=== PATIENT | female | born 1945 | race Caucasian/White ===

== ENCOUNTER 2024-09-24 15:20 | Emergency (ER) | payer MEDICARE, OTHER, SELFPAY ==
[2024-09-24 15:42] VITALS: BP 122/60; PULSE 84; RESP 17; TEMP 36.8; O2SAT 97; BMI 31.3
--- NOTE | 2024-09-24 17:19 | XRR_ITS ---
PROCEDURE INFORMATION: Exam: XR Chest Exam date and time: 09/24/2024 5:41 PM Age: 79 years old Clinical indication: Cough and dyspnea; Additional info: Dyspnea/cough TECHNIQUE: Imaging protocol: Radiologic exam of the chest. Views: 1 view. COMPARISON: No relevant prior studies available. FINDINGS: Lungs: There is an opacity in the left lung base medially in the retrocardiac station which is incompletely visualized and assessed on this examination. A lateral view may help to further visualize this finding. Pleural spaces: Unremarkable. No pleural effusion. No pneumothorax. Heart/Mediastinum: Unremarkable. No cardiomegaly. Bones/joints: Unremarkable. XR/XR chest 1V portable [id number] IMPRESSION: There is an opacity in the left lung base medially in the retrocardiac station which is incompletely visualized and assessed on this examination. A lateral view may help to further visualize this finding.
--- NOTE | 2024-09-24 17:19 | CTR_ITS ---
PROCEDURE INFORMATION: Exam: CT Head Without Contrast Exam date and time: 09/24/2024 5:48 PM Age: 79 years old Clinical indication: Syncope and collapse; Syncope with hypotension; Additional info: Syncope/loc TECHNIQUE: Imaging protocol: Computed tomography of the head without contrast. Radiation optimization: All CT scans at this facility use at least one of these dose optimization techniques: automated exposure control; mA and/or kV adjustment per patient size (includes targeted exams where dose is matched to clinical indication); or iterative reconstruction. COMPARISON: No relevant prior studies available. RADIATION DOSE METRICS: Total DLP (mGy-cm): 1042.18 FINDINGS: Brain: Subcortical and periventricular white matter changes consistent with small-vessel ischemic disease in the appropriate clinical setting. Small-vessel ischemic disease. Cerebral ventricles: No ventriculomegaly. Paranasal sinuses: Visualized sinuses are unremarkable. No fluid levels. Mastoid air cells: Visualized mastoid air cells are well aerated. Bones: Unremarkable. No acute fracture. Soft tissues: Unremarkable. CT/CT head wo con* [id number] IMPRESSION: Small-vessel ischemic disease.
--- NOTE | 2024-09-24 17:34 | ECG_ITS ---
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 Measurements Intervals [place] Rate: 76 P: 55 AL: 158 QRS: 28 QRSD: 89 T: 50 QT: 430 QTc: 485 Interpretive Statements SINUS RHYTHM No previous ECG available for comparison Electronically Signed On 09-25-2024 07:39:55 KETTLE LOADER by Armond Perez M.D. [id number] [id number]
--- NOTE | 2024-09-24 17:48 | W.ED.SYNCOPE ---
Documented by User: Alireza Munroe DO 09/25/24 12:30 HPI - Syncope General: Chief Complaint: Syncope Stated Complaint: weakness Time Seen by Provider: 09/24/24 17:12 History of Present Illness: 79-year-old female presents emergency room after syncopal episode. Intermittently she has had syncopal episodes for the last 8 months she fell around 3:00 today presented to the emergency room she did not strike her head she did not completely lose consciousness he stood up got very lightheaded and dizzy went to the ground. No chest pain or discomfort no recent fever sweats chills. Associated symptoms: Deny abdominal pain, chest pain or fever(s) Related Data Home Medications ?Medication ?Instructions ?Recorded ?Confirmed albuterol 90 mcg/actuation aerosol 90 mcg inhalation Q4-5H PRN 09/24/24 09/24/24 inhaler Shortness Of Breath ferrous sulfate 325 mg (65 mg 325 mg PO QID 09/24/24 09/24/24 iron) tablet furosemide 40 mg tablet 40 mg PO QID 09/24/24 09/24/24 gemfibrozil 600 mg tablet 600 mg PO BID 09/24/24 09/24/24 meloxicam 15 mg tablet 15 mg PO DAILY 09/24/24 09/24/24 metoprolol tartrate 25 mg tablet 25 mg PO BID 09/24/24 09/24/24 mometasone 200 mcg/actuation HFA 2 puff inhalation DAILY 09/24/24 09/24/24 aerosol inhaler (Asmanex HFA) montelukast 10 mg tablet 10 mg PO DAILY 09/24/24 09/24/24 olanzapine 10 mg tablet 10 mg PO QID 09/24/24 09/24/24 pantoprazole 40 mg tablet,delayed 40 mg PO DAILY 09/24/24 09/24/24 release paroxetine HCl 40 mg tablet 40 mg PO DAILY 09/24/24 09/24/24 tramadol 50 mg tablet 50 mg PO Q6H PRN unknown 09/24/24 09/24/24 trazodone 100 mg tablet 100 mg PO DAILY PRN Sleep 09/24/24 09/24/24 Previous Rx's ?Medication ?Instructions ?Recorded cephalexin 500 mg capsule 500 mg PO QID 5 days #20 caps 09/24/24 Allergies Allergy/AdvReac Type Severity Reaction Status Date / Time ciprofloxacin (From Cipro) Allergy ALGY-Hives Verified 09/24/24 19:46 Penicillins Allergy ALGY-Rash Verified 09/24/24 19:46 Review of Systems Const: Denies: fever(s) or chills Card: Denies: chest pain Resp: Denies: dyspnea GI: Denies: abdominal pain : Denies: dysuria, urinary frequency or urinary urgency Musc: Denies: neck pain or back pain Skin/Breast: Denies: rash Physical Exam Const: COMMON NORMALS: no acute distress GENERAL APPEARANCE: cooperative and comfortable ORIENTATION/CONSCIOUSNESS: Yes awake, Yes oriented to person, Yes oriented to place and Yes oriented to time HENMT: COMMON NORMALS: normocephalic, atraumatic and hearing grossly normal bilaterally HEAD & SCALP: normocephalic and atraumatic Resp: COMMON NORMALS: normal respiratory effort, No retractions, No use of accessory muscles and clear to auscultation bilaterally AUSCULTATION: clear to auscultation bilaterally Cardio: COMMON NORMALS: regular rate, regular rhythm and No murmurs present (Cardio) RATE: regular rate RHYTHM: regular rhythm GI: COMMON NORMALS: Soft to palpation and No hepatosplenomegaly present AUSCULTATION: Yes normoactive bowel sounds PALPATION: Yes Soft to palpation, No Tenderness to palpation present (GI), No Guarding due to palpation present (GI) and Yes No hepatosplenomegaly present Extremity: COMMON NORMALS: normal to inspection, capillary refill normal, no clubbing, cyanosis or edema, no calf tenderness and no pedal edema Neuro: SENSORIUM/ORIENTATION: Yes oriented to person, Yes oriented to place and Yes oriented to time Skin: COMMON NORMALS: no rashes or lesions noted GENERAL SKIN EXAM: no rashes or lesions noted Course Vital Signs: Vital signs: Vital Signs Temperature 98.3 F 09/24/24 15:42 Pulse Rate 77 09/24/24 18:41 Respiratory Rate 17 09/24/24 15:42 Blood Pressure 131/81 09/24/24 18:41 Pulse Oximetry 97 09/24/24 18:41 Oxygen Delivery Me thod Room Air 09/24/24 15:42 MDM - Syncope Lab Data 09/24/24 17:42 09/24/24 17:42 Radiology Impressions Chest X-Ray 09/24/24 17:19 IMPRESSION: There is an opacity in the left lung base medially in the retrocardiac station which is incompletely visualized and assessed on this examination. A lateral view may help to further visualize this finding. Head CT 09/24/24 17:19 IMPRESSION: Small-vessel ischemic disease. Laboratory Results WBC 7.71 10^3/uL (3.29-11.43) 09/24/24 17:42 RBC 3.85 10^6/uL (3.85-5.65) 09/24/24 17:42 Hgb 10.40 g/dL (11.27-16.99) L 09/24/24 17:42 Hct 33.3 % (36-47) L 09/24/24 17:42 MCV 86.5 fl (85-98) 09/24/24 17:42 MCH 27.0 pg (27-33) 09/24/24 17:42 MCHC 31.2 g/dL (30-55) 09/24/24 17:42 RDW 13.7 % (12.1-15.1) 09/24/24 17:42 Plt Count 249 10^3/cmm (157-399) 09/24/24 17:42 MPV 10.0 fL (7.4-10.4) 09/24/24 17:42 Neut % (Auto) 67.4 % 09/24/24 17:42 Lymph % (Auto) 23.6 % 09/24/24 17:42 [place] % (Auto) 7.5 % 09/24/24 17:42 Eos % (Auto) 0.0 % 09/24/24 17:42 Baso % (Auto) 0.9 % 09/24/24 17:42 Neut # (Auto) 5.19 10^3/uL (1.8-7.7) 09/24/24 17:42 Lymph # (Auto) 1.8 10^3/uL (0.8-4.8) 09/24/24 17:42 [place] # (Auto) 0.6 10^3/uL (0.2-0.9) 09/24/24 17:42 Eos # (Auto) 0.0 10^3/uL (0.0-0.8) 09/24/24 17:42 Baso # (Auto) 0.1 10^3/uL (0.0-0.1) 09/24/24 17:42 Nucleated RBC % (auto) 0 % 09/24/24 17:42 Nucleated RBCs # 0.0 /100WBC 09/24/24 17:42 Sodium 137 mmol/L (136-145) 09/24/24 17:42 Potassium 4.6 mmol/L (3.5-5.1) 09/24/24 17:42 Chloride 99 mmol/L (98-107) 09/24/24 17:42 Carbon Dioxide 28 mmol/L (22-29) 09/24/24 17:42 Anion Gap 14.6 (5-19) 09/24/24 17:42 BUN 23 mg/dL (8-23) 09/24/24 17:42 Creatinine 1.3 mg/dL (0.5-0.9) H 09/24/24 17:42 GFR Calculation Not Reportable 09/24/24 17:42 Glucose 98 mg/dL (65-115) 09/24/24 17:42 Calculated Osmolality 288 mOsm/kg (285-295) 09/24/24 17:42 Calcium 9.6 mg/dL (8.5-10.5) 09/24/24 17:42 Magnesium 2.3 mg/dL (1.7-2.3) 09/24/24 17:42 Total Bilirubin 0.2 mg/dL (0.15-1.2) 09/24/24 17:42 AST 20 U/L (0-32) 09/24/24 17:42 ALT 17 U/L (0-33) 09/24/24 17:42 Alkaline Phosphatase 52 U/L (35-105) 09/24/24 17:42 Troponin T Baseline 13 ng/L (0-10) H 09/24/24 17:42 Total Protein 6.5 g/dL (6.6-8.7) L 09/24/24 17:42 Albumin 4.1 g/dL (3.5-5.2) 09/24/24 17:42 Globulin 2.4 g/dL (1.3-4.6) 09/24/24 17:42 Urine Color Yellow (Yellow) 09/24/24 18:34 Urine Appearance Clear (CLEAR) 09/24/24 18:34 Urine pH 5.5 (5-7) 09/24/24 18:34 Ur Specific [place] 1.010 (1.005-1.030) 09/24/24 18:34 Urine Protein Negative (Negative) 09/24/24 18:34 Urine Glucose (UA) Negative (Normal) 09/24/24 18:34 Urine Ketones Negative (Negative) 09/24/24 18:34 Urine Blood Negative (Negative) 09/24/24 18:34 Urine Nitrate Negative (Negative) 09/24/24 18:34 Urine Bilirubin Negative (Negative) 09/24/24 18:34 Urine Urobilinogen 0.2 mg/dL (Negative) 09/24/24 18:34 Ur Leukocyte Esterase 1+ (Negative) A 09/24/24 18:34 Urine RBC 0-4 /hpf (0-2) H 09/24/24 18:34 Urine WBC 25-40 /hpf (0-5) H 09/24/24 18:34 Ur Squamous Epith Cells 0-4 /hpf (0-5) H 09/24/24 18:34 Amorphous Sediment Not Reportable 09/24/24 18:34 Urine Bacteria 4+ /hpf (NONE) H 09/24/24 18:34 All radiology interpretation(s) finalized by discharge Discharge Plan Discharge Patient Disposition: Home Clinical Impression: Syncope due to orthostatic hypotension, Acute UTI, Medication management Condition: Stable Prescriptions: New cephalexin 500 mg capsule 500 mg PO QID 5 Days Qty: 20 0RF No Action tramadol 50 mg Tablet 50 mg PO Q6H PRN (Reason: unknown) olanzapine 10 mg Tablet 10 mg PO QID metoprolol tartrate 25 mg Tablet 25 mg PO BID gemfibrozil 600 mg Tablet 600 mg PO BID trazodone 100 mg Tablet 100 mg PO DAILY PRN (Reason: Sleep) furosemide 40 mg Tablet 40 mg PO QID ferrous sulfate 325 mg (65 mg iron) Tablet 325 mg PO QID meloxicam 15 mg Tablet 15 mg PO DAILY paroxetine HCl 40 mg Tablet 40 mg PO DAILY pantoprazole 40 mg Tablet,Delayed Release (Dr/Ec) 40 mg PO DAILY albuterol 90 mcg/actuation Aerosol 90 mcg INHALATION Q4-5H PRN (Reason: Shortness Of Breath) montelukast 10 mg Tablet 10 mg PO DAILY Asmanex HFA 200 mcg/actuation Hfa Aerosol Inhaler 2 puff INHALATION DAILY Discharge Orders: Discharge ED (Routine); Ordered 09/24/24 Ordered By: Michael Fraga Referrals: Adan Salmeron MD [Primary Care Provider] - 09/27/24 (UTI. Continuing episodes of syncope. Was double taking metoprolol. We have thrown away the extra metoprolol. She has also decided to stop losartan until she can figure out if her blood pressure is going to continue to drop. She needs help with medication management. We found at least 2 duplicate medications and her bags which she may be double taking.) Activity Restrictions/Additional Instructions: 1. Stop taking losartan 50 mg daily. This can be added back in a smaller dose if your blood pressure is too high. Please let your primary care doctor decide if this needs to be added back. We have thrown this medication away so it is no longer in your bag. 2. Take metoprolol tartrate 25 mg twice a day. 3. Take Lasix 40 mg once daily. 4. Take Keflex 4 times a day for 5 days for a urinary tract infection. 5. Keep a journal of your blood pressure and heart rate. Take these measurements at least twice a day and record them. Make a follow-up appointment with your doctor in the next 3 to 7 days. Please read all discharge instructions and abide by recommendations and return precautions. Make an appointment to follow-up with your primary care doctor as directed for follow-up. Return to ER if getting worse or other emergent symptoms. Print Language: Kittitian Coding Level of Care Code ED Unionmelt Operator for Chg Fwd Documented by User: Michael Fraga MD 09/24/24 19:40 HPI - Syncope General: Chief Complaint: Syncope Stated Complaint: weakness Time Seen by Provider: 09/24/24 17:12 Related Data Home Medications ?Medication ?Instructions ?Recorded ?Confirmed albuterol 90 mcg/actuation aerosol 90 mcg inhalation Q4-5H PRN 09/24/24 09/24/24 inhaler Shortness Of Breath ferrous sulfate 325 mg (65 mg 325 mg PO QID 09/24/24 09/24/24 iron) tablet furosemide 40 mg tablet 40 mg PO QID 09/24/24 09/24/24 gemfibrozil 600 mg tablet 600 mg PO BID 09/24/24 09/24/24 meloxicam 15 mg tablet 15 mg PO DAILY 09/24/24 09/24/24 metoprolol tartrate 25 mg tablet 25 mg PO BID 09/24/24 09/24/24 mometasone 200 mcg/actuation HFA 2 puff inhalation DAILY 09/24/24 09/24/24 aerosol inhaler (Asmanex HFA) montelukast 10 mg tablet 10 mg PO DAILY 09/24/24 09/24/24 olanzapine 10 mg tablet 10 mg PO QID 09/24/24 09/24/24 pantoprazole 40 mg tablet,delayed 40 mg PO DAILY 09/24/24 09/24/24 release paroxetine HCl 40 mg tablet 40 mg PO DAILY 09/24/24 09/24/24 tramadol 50 mg tablet 50 mg PO Q6H PRN unknown 09/24/24 09/24/24 trazodone 100 mg tablet 100 mg PO DAILY PRN Sleep 09/24/24 09/24/24 Previous Rx's ?Medication ?Instructions ?Recorded cephalexin 500 mg capsule 500 mg PO QID 5 days #20 caps 09/24/24 Allergies Allergy/AdvReac Type Severity Reaction Status Date / Time ciprofloxacin (From Cipro) Allergy ALGY-Hives Verified 09/24/24 19:46 Penicillins Allergy ALGY-Rash Verified 09/24/24 19:46 Course Vital Signs: Vital signs: Vital Signs Temperature 98.3 F 09/24/24 15:42 Pulse Rate 77 09/24/24 18:41 Respiratory Rate 17 09/24/24 15:42 Blood Pressure 131/81 09/24/24 18:41 Pulse Oximetry 97 09/24/24 18:41 Oxygen Delivery Me thod Room Air 09/24/24 15:42 MDM - Syncope Medical Decision Making Update 1915. Dr Fraga I have seen the patient after handoff. Patient's EKG shows a sinus rhythm without any ectopy or ischemic changes. She has mildly elevated creatinine but a normal BUN to creatinine ratio. She has a hemoglobin of 10.4 which appears to be stable. Chest x-ray, EP interpretation. There may be an infiltrate projecting over the left cardiac border. I discussed with the patient she does not have any symptoms of heart failure or pulmonary infection. I do not think this infiltrate changes management today. Clinically no signs of heart failure. Clinically no evidence of DVT. Vitals are reassuring in the room. Patient has an entire suitcase full of medications. She showed me the medications which she is taking. The nurse has not entered these into the computer yet. The patient is taking metoprolol tartrate 25 mg twice a day. However, she has 2 bottles of metoprolol tartrate 25 mg. She reports she is taking 1 of each of these. So, ineffective, she is actually taking 50 mg of metoprolol tartrate twice daily. She is also taking losartan 50 mg daily and Lasix 20 mg daily. The patient reports that her syncopal spells usually start with lightheadedness and feeling faint. She took her blood pressure today while she was feeling faint and said her systolic was in the 90s. She did not have syncope today. She felt it coming on so she went to her couch and laid down and slept for a while. She never fell or lost consciousness today. She has not had a ambulatory classroom monitor or an echocardiogram, per her report, since she started having syncopal spells about 8 months ago. Have recommended that she do this. Patient gave me permission to throw away one of her bottles of metoprolol tartrate. There by, we can eliminate the chance that she will accidentally take too much. Additionally, I think the benefits of decreasing her blood pressure medicine outweigh the risks of the potential for hypertension. Patient would like to get rid of the losartan. I suggested that we taper down the dose but she would rather just get rid of it entirely. It is a 50 mg daily dose. I suppose we can stop it and continue the metoprolol tartrate and Lasix and see how she does. I will make a note of this on her discharge that she can show her primary care doctor. She does have evidence of a urinary tract infection. This could also be contributing to her lightheadedness. I am going to give her 1 g of Rocephin and send a urine culture. It looks like she has had E. coli in the past which is essentially pansensitive. I will prescribe Keflex. Follow-up to the PCP in 3 to 5 days. Blood pressure and heart rate journal. Lab Data 09/24/24 17:42 09/24/24 17:42 Radiology Impressions Chest X-Ray 09/24/24 17:19 IMPRESSION: There is an opacity in the left lung base medially in the retrocardiac station which is incompletely visualized and assessed on this examination. A lateral view may help to further visualize this finding. Head CT 09/24/24 17:19 IMPRESSION: Small-vessel ischemic disease. Laboratory Results WBC 7.71 10^3/uL (3.29-11.43) 09/24/24 17:42 RBC 3.85 10^6/uL (3.85-5.65) 09/24/24 17:42 Hgb 10.40 g/dL (11.27-16.99) L 09/24/24 17:42 Hct 33.3 % (36-47) L 09/24/24 17:42 MCV 86.5 fl (85-98) 09/24/24 17:42 MCH 27.0 pg (27-33) 09/24/24 17:42 MCHC 31.2 g/dL (30-55) 09/24/24 17:42 RDW 13.7 % (12.1-15.1) 09/24/24 17:42 Plt Count 249 10^3/cmm (157-399) 09/24/24 17:42 MPV 10.0 fL (7.4-10.4) 09/24/24 17:42 Neut % (Auto) 67.4 % 09/24/24 17:42 Lymph % (Auto) 23.6 % 09/24/24 17:42 [place] % (Auto) 7.5 % 09/24/24 17:42 Eos % (Auto) 0.0 % 09/24/24 17:42 Baso % (Auto) 0.9 % 09/24/24 17:42 Neut # (Auto) 5.19 10^3/uL (1.8-7.7) 09/24/24 17:42 Lymph # (Auto) 1.8 10^3/uL (0.8-4.8) 09/24/24 17:42 [place] # (Auto) 0.6 10^3/uL (0.2-0.9) 09/24/24 17:42 Eos # (Auto) 0.0 10^3/uL (0.0-0.8) 09/24/24 17:42 Baso # (Auto) 0.1 10^3/uL (0.0-0.1) 09/24/24 17:42 Nucleated RBC % (auto) 0 % 09/24/24 17:42 Nucleated RBCs # 0.0 /100WBC 09/24/24 17:42 Sodium 137 mmol/L (136-145) 09/24/24 17:42 Potassium 4.6 mmol/L (3.5-5.1) 09/24/24 17:42 Chloride 99 mmol/L (98-107) 09/24/24 17:42 Carbon Dioxide 28 mmol/L (22-29) 09/24/24 17:42 Anion Gap 14.6 (5-19) 09/24/24 17:42 BUN 23 mg/dL (8-23) 09/24/24 17:42 Creatinine 1.3 mg/dL (0.5-0.9) H 09/24/24 17:42 GFR Calculation Not Reportable 09/24/24 17:42 Glucose 98 mg/dL (65-115) 09/24/24 17:42 Calculated Osmolality 288 mOsm/kg (285-295) 09/24/24 17:42 Calcium 9.6 mg/dL (8.5-10.5) 09/24/24 17:42 Magnesium 2.3 mg/dL (1.7-2.3) 09/24/24 17:42 Total Bilirubin 0.2 mg/dL (0.15-1.2) 09/24/24 17:42 AST 20 U/L (0-32) 09/24/24 17:42 ALT 17 U/L (0-33) 09/24/24 17:42 Alkaline Phosphatase 52 U/L (35-105) 09/24/24 17:42 Troponin T Baseline 13 ng/L (0-10) H 09/24/24 17:42 Total Protein 6.5 g/dL (6.6-8.7) L 09/24/24 17:42 Albumin 4.1 g/dL (3.5-5.2) 09/24/24 17:42 Globulin 2.4 g/dL (1.3-4.6) 09/24/24 17:42 Urine Color Yellow (Yellow) 09/24/24 18:34 Urine Appearance Clear (CLEAR) 09/24/24 18:34 Urine pH 5.5 (5-7) 09/24/24 18:34 Ur Specific [place] 1.010 (1.005-1.030) 09/24/24 18:34 Urine Protein Negative (Negative) 09/24/24 18:34 Urine Glucose (UA) Negative (Normal) 09/24/24 18:34 Urine Ketones Negative (Negative) 09/24/24 18:34 Urine Blood Negative (Negative) 09/24/24 18:34 Urine Nitrate Negative (Negative) 09/24/24 18:34 Urine Bilirubin Negative (Negative) 09/24/24 18:34 Urine Urobilinogen 0.2 mg/dL (Negative) 09/24/24 18:34 Ur Leukocyte Esterase 1+ (Negative) A 09/24/24 18:34 Urine RBC 0-4 /hpf (0-2) H 09/24/24 18:34 Urine WBC 25-40 /hpf (0-5) H 09/24/24 18:34 Ur Squamous Epith Cells 0-4 /hpf (0-5) H 09/24/24 18:34 Amorphous Sediment Not Reportable 09/24/24 18:34 Urine Bacteria 4+ /hpf (NONE) H 09/24/24 18:34 Discharge Plan Discharge Patient Disposition: Home Clinical Impression: Syncope due to orthostatic hypotension, Acute UTI, Medication management Condition: Stable Prescriptions: New cephalexin 500 mg capsule 500 mg PO QID 5 Days Qty: 20 0RF No Action tramadol 50 mg Tablet 50 mg PO Q6H PRN (Reason: unknown) olanzapine 10 mg Tablet 10 mg PO QID metoprolol tartrate 25 mg Tablet 25 mg PO BID gemfibrozil 600 mg Tablet 600 mg PO BID trazodone 100 mg Tablet 100 mg PO DAILY PRN (Reason: Sleep) furosemide 40 mg Tablet 40 mg PO QID ferrous sulfate 325 mg (65 mg iron) Tablet 325 mg PO QID meloxicam 15 mg Tablet 15 mg PO DAILY paroxetine HCl 40 mg Tablet 40 mg PO DAILY pantoprazole 40 mg Tablet,Delayed Release (Dr/Ec) 40 mg PO DAILY albuterol 90 mcg/actuation Aerosol 90 mcg INHALATION Q4-5H PRN (Reason: Shortness Of Breath) montelukast 10 mg Tablet 10 mg PO DAILY Asmanex HFA 200 mcg/actuation Hfa Aerosol Inhaler 2 puff INHALATION DAILY Discharge Orders: Discharge ED (Routine); Ordered 09/24/24 Ordered By: Michael Fraga Referrals: Adan Salmeron MD [Primary Care Provider] - 09/27/24 (UTI. Continuing episodes of syncope. Was double taking metoprolol. We have thrown away the extra metoprolol. She has also decided to stop losartan until she can figure out if her blood pressure is going to continue to drop. She needs help with medication management. We found at least 2 duplicate medications and her bags which she may be double taking.) Activity Restrictions/Additional Instructions: 1. Stop taking losartan 50 mg daily. This can be added back in a smaller dose if your blood pressure is too high. Please let your primary care doctor decide if this needs to be added back. We have thrown this medication away so it is no longer in your bag. 2. Take metoprolol tartrate 25 mg twice a day. 3. Take Lasix 40 mg once daily. 4. Take Keflex 4 times a day for 5 days for a urinary tract infection. 5. Keep a journal of your blood pressure and heart rate. Take these measurements at least twice a day and record them. Make a follow-up appointment with your doctor in the next 3 to 7 days. Please read all discharge instructions and abide by recommendations and return precautions. Make an appointment to follow-up with your primary care doctor as directed for follow-up. Return to ER if getting worse or other emergent symptoms. Print Language: Kittitian Coding Level of Care Code ED Unionmelt Operator for Sheba Monzon
[2024-09-24 18:08] LABS: Basophils # 0.1 10^3/uL (0.0-0.1); Basophils % 0.9 %; Hematocrit 33.3 % (36-47); Lymphocytes # 1.8 10^3/uL (0.8-4.8); Lymphocytes % 23.6 %; Mean Corpuscular HGB Conc 31.2 g/dL (30-55); Mean Corpuscular Volume 86.5 fl (85-98); Monocytes # 0.6 10^3/uL (0.2-0.9); Monocytes % 7.5 %; Neutrophils # 5.19 10^3/uL (1.8-7.7); Neutrophils % 67.4 %; Nucleated Red Blood Cells % 0 %; Platelet Count 249 10^3/cmm (157-399); Red Blood Count 3.85 10^6/uL (3.85-5.65); Red Cell Distribution Width 13.7 % (12.1-15.1); White Blood Count 7.71 10^3/uL (3.29-11.43)
[2024-09-24 18:29] LABS: Troponin(5th) Baseline 13 ng/L (0-10)
[2024-09-24 18:34] LABS: Alanine Aminotransferase 17 U/L (0-33); Albumin Level 4.1 g/dL (3.5-5.2); Alkaline Phosphatase 52 U/L (35-105); Anion Gap 14.6 (5-19); Aspartate Amino Transferase 20 U/L (0-32); Blood Urea Nitrogen 23 mg/dL (8-23); Calcium 9.6 mg/dL (8.5-10.5); Carbon Dioxide 28 mmol/L (22-29); Chloride 99 mmol/L (98-107); Creatinine Clr Calc Pharmacy 36.3605; Globulin 2.4 g/dL (1.3-4.6); Glucose 98 mg/dL (65-115); Magnesium 2.3 mg/dL (1.7-2.3); Osmolality Calculated 288 mOsm/kg (285-295); Potassium 4.6 mmol/L (3.5-5.1); Sodium 137 mmol/L (136-145); Total Bilirubin 0.2 mg/dL (0.15-1.2); Total Protein 6.5 g/dL (6.6-8.7)
[2024-09-24 18:41] VITALS: BP 131/81; PULSE 77; O2SAT 97
[2024-09-24 19:02] LABS: Bilirubin Urine Negative (Negative); Blood Urine Negative (Negative); Glucose Urine UA Negative (Normal); Ketones Urine Negative (Negative); Leukocyte Esterase Urine 1+ (Negative); Nitrate Urine Negative (Negative); Protein Urine Negative (Negative); Urine Appearance Clear (CLEAR); Urine Color Yellow (Yellow); Urobilinogen Urine 0.2 mg/dL (Negative); pH Urine 5.5 (5-7)
[2024-09-24 19:09] LABS: Add Urine Microscopic? YES; RBC Urine 0-4 /hpf (0-2)
[2024-09-24 19:10] LABS: Add Urine Culture? Yes; Bacteria Urine 4+ /hpf; Squamous Epithelial Cell Urine 0-4 /hpf (0-5); WBC Urine 25-40 /hpf (0-5)
--- NOTE | 2024-09-24 19:20 | ECG_ITS ---
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 Measurements Intervals [place] Rate: 57 P: 54 OR: 171 QRS: 104 QRSD: 106 T: 35 QT: 413 QTc: 405 Interpretive Statements SINUS BRADYCARDIA WITH SINUS ARRHYTHMIA RIGHT AXIS DEVIATION [QRS AXIS > 100] LOW QRS VOLTAGE IN PRECORDIAL LEADS INCOMPLETE RIGHT BUNDLE BRANCH BLOCK NONSPECIFIC T-WAVE ABNORMALITY Compared to ECG 09/24/2024 17:34:53 Right-axis deviation now present Low QRS voltage now present Incomplete right bundle-branch block now present T-wave abnormality now present Sinus rhythm no longer present Electronically Signed On 09-26-2024 12:44:47 GENERAL SURGEON by Kulwinder Sheridan M.D. [email or web address]
[2024-09-24] MEDS: cefTRIAXone 1,000 mg SDV 1000 MG IVP (20:02)
== END 2024-09-24 20:26 | disposition home or self-care (01) ==
PROVIDERS: Emergency Provider Family Medicine; PCP Pediatrics
DX: I95.1 Orthostatic hypotension (principal); N39.0 Urinary tract infection, site not specified
CPT/HCPCS: 36415; 70450; 71045; 80053; 81001; 83735; 84484; 85025; 87077; 87086; 87186; 93005; 96374; 99285; J0696

== ENCOUNTER 2024-11-02 15:18 | Inpatient (IN) | payer MEDICARE, SELFPAY ==
[2024-11-02] VITALS (10 sets, daily range): BP systolic 94–147; BP diastolic 57–87; PULSE 118–133; RESP 16–20; TEMP 36.6–37; O2SAT 91–97
--- NOTE | 2024-11-02 15:29 | CT_ITS ---
WS: [id number] CT HEAD TECHNIQUE: Noncontrast CT of the head obtained from the skullbase to the vertex. CLINICAL INFORMATION: Symptoms of acute stroke COMPARISON: 09/24/2024 DLP: [address] scans at [facility] use at least one of these dose optimization techniques: automated exposure control; mA and/or kV adjustment per patient size (includes targeted exams where dose is matched to clinical indication); or iterative reconstruction. FINDINGS: No evidence of intracranial hemorrhage or mass effect. Ventricular system and basal cisterns are patent. Moderate small vessel changes with moderate parenchymal volume loss. Vascular calcification. No extra-axial fluid collections. No evidence of mass or mass effect. A few tiny chronic lacunar infarcts RIGHT basal ganglia. Paranasal sinuses and mastoid air cells are well aerated. .Normal visualized soft tissues. CT/CT head thrombolytic [id number] IMPRESSION: 1. No evidence of intracranial hemorrhage or mass effect. 2. No acute intracranial findings. Notified Jeniffer Riley MD at 11/02/2024 3:46 PM.
--- NOTE | 2024-11-02 15:29 | XR_ITS ---
WS: [id number] Exam: XR chest 1V portable [id number] Date/Time of Exam: 11/02/2024 3:53 PM Reason For Exam: cva Comparison 09/24/2024. A soft tissue density overlies the LEFT heart border and apparently represents a large hiatal hernia. This is unchanged. The lungs are otherwise clear and fully expanded. Normal cardiomediastinal silhouette. Bony structures are intact. XR/XR chest 1V portable [id number] IMPRESSION: 1. Large hiatal hernia. No acute cardiopulmonary finding.
--- NOTE | 2024-11-02 15:29 | ECG_ITS ---
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 Measurements Intervals [place] Rate: 132 P: 51 ND: 148 QRS: 29 QRSD: 88 T: 55 QT: 376 QTc: 558 Interpretive Statements SINUS TACHYCARDIA NONSPECIFIC T-WAVE ABNORMALITY ABNORMAL RHYTHM ECG Compared to ECG 09/25/2024 18:47:19 Sinus bradycardia no longer present Sinus arrhythmia no longer present Right-axis deviation no longer present Incomplete right bundle-branch block no longer present T-wave abnormality still present Electronically Signed On 11-02-2024 18:47:15 CDT by Alpa Mendoza M.D. [email or web address] [id number]
--- NOTE | 2024-11-02 15:30 | W.ED.NEUROSD ---
HPI - Neuro Symptoms/Deficit General: Chief Complaint: Altered Mental Status Stated Complaint: high hr, confusion, shakes Time Seen by Provider: 11/02/24 15:25 Source: patient Mode of arrival: ambulatory Limitations: no limitations History of Present Illness: 79-year-old female states she went to her appointment she return home family states roughly around 2:00 and when she got home she is quite confused states she does not make any sense having word finding difficulty along with generalized weakness she also had some shaking. No history of strokes he states since that his symptoms are completely resolved she is answering all my questions appropriate here denies any weakness or focal deficits. She denies headache or chest pain or fever Associated symptoms: Deny chest pain, headache(s), nausea or vomiting Related Data Home Medications ?Medication ?Instructions ?Recorded ?Confirmed ferrous sulfate 325 mg (65 mg 325 mg PO QID 09/24/24 11/02/24 iron) tablet gemfibrozil 600 mg tablet 600 mg PO BID 09/24/24 11/02/24 meloxicam 15 mg tablet 15 mg PO DAILY 09/24/24 11/02/24 metoprolol tartrate 25 mg tablet 25 mg PO BID 09/24/24 11/02/24 mometasone 200 mcg/actuation HFA 2 puff inhalation DAILY 09/24/24 11/02/24 aerosol inhaler (Asmanex HFA) montelukast 10 mg tablet 10 mg PO DAILY 09/24/24 11/02/24 pantoprazole 40 mg tablet,delayed 40 mg PO DAILY 09/24/24 11/02/24 release paroxetine HCl 40 mg tablet 40 mg PO DAILY 09/24/24 11/02/24 tramadol 50 mg tablet 50 mg PO Q6H PRN unknown 09/24/24 11/02/24 clonidine HCl 0.2 mg tablet 0.2 mg PO BID 11/02/24 11/02/24 famotidine 40 mg tablet 40 mg PO DAILY 11/02/24 11/02/24 furosemide 40 mg tablet 40 mg PO DAILY 11/02/24 11/02/24 losartan 50 mg tablet 50 mg PO DAILY 11/02/24 11/02/24 olanzapine 10 mg tablet 10 mg PO DAILY 11/02/24 11/02/24 semaglutide 0.25 mg or 0.5 mg (2 0.25 mg SUBCUT Q7D 11/02/24 11/02/24 mg/3 mL) subcutaneous pen injector (Ozempic) trazodone 150 mg tablet 150 mg PO DAILY 11/02/24 11/02/24 Allergies Allergy/AdvReac Type Severity Reaction Status Date / Time ciprofloxacin (From Cipro) Allergy ALGY-Hives Verified 09/24/24 19:46 Penicillins Allergy ALGY-Rash Verified 09/24/24 19:46 Review of Systems Const: Denies: fever(s), chills, body aches or change in appetite Eyes: Denies: blurry vision or eye discomfort ENMT: Denies: throat pain or dental pain Card: Denies: chest pain Resp: Denies: dyspnea GI: Denies: abdominal pain, nausea, vomiting or diarrhea Musc: Denies: neck pain or back pain Skin/Breast: Denies: rash Neuro: Reports: dizziness, confusion and difficulty communicating thoughts; Denies: headache(s) NIH stroke score NIHSS: Level Of Consciousness - 1a: 0 Level Of Consciousness Questions - 1b: Both Correct Level Of Consciousness Commands - 1c: Both Correct Best Gaze - 2: Normal Visual Torres - 3: No Visual Loss Facial Palsy - 4: Normal Motor Arm Right - 5: No Drift Motor Arm Left - 5: No Drift Motor Leg Right - 6: No Drift Motor Leg Left - 6: No Drift Limb Ataxia - 7: Absent Sensory - 8: Normal Best Language - 9: No Aphasia Dysarthia - 10: Normal Extinction And Inattention - 11: 0 Score: Total Score: 0 Physical Exam Const: COMMON NORMALS: patient oriented x3 HENMT: COMMON NORMALS: normocephalic and atraumatic HEAD & SCALP: normocephalic and atraumatic Eye: COMMON NORMALS: Equal, round and reactive pupils present, EOMs intact bilaterally and conjunctivae normal CONJUNCTIVA: Yes conjunctivae normal PUPIL: Yes Equal, round and reactive pupils present Neck/C-Spine: COMMON NORMALS: full ROM and supple Chest: COMMONS NORMALS: normal inspection of the chest Resp: COMMON NORMALS: normal respiratory effort, No retractions, No use of accessory muscles and clear to auscultation bilaterally AUSCULTATION: clear to auscultation bilaterally Cardio: COMMON NORMALS: regular rate, regular rhythm and No murmurs present (Cardio) RATE: regular rate RHYTHM: regular rhythm GI: COMMON NORMALS: Normal to inspection, nondistended, normoactive bowel sounds present, Soft to palpation, non-tender and no masses PALPATION: Yes Soft to palpation Extremity: COMMON NORMALS: normal to inspection and full ROM Neuro: COMMON NORMALS: patient oriented x3, moves all extremities and no focal motor deficits CRANIAL NERVES: Yes CN normal except as noted SPEECH: speech normal MOTOR EXAM: 5/5 motor strength present throughout Psych: COMMON NORMALS: mental status grossly normal, Normal thought process present and cooperative THOUGHT PROCESS: Normal thought process present Skin: COMMON NORMALS: no rashes or lesions noted and no wounds GENERAL SKIN EXAM: no rashes or lesions noted Course Vital Signs: Vital signs: Vital Signs Temperature 97.8 F 11/02/24 15:30 Pulse Rate 120 H 11/02/24 17:30 Respiratory Rate 20 H 11/02/24 17:30 Blood Pressure 108/66 11/02/24 17:30 Pulse Oximetry 94 11/02/24 17:30 Oxygen Delivery Me thod Room Air 11/02/24 16:19 MDM - Neuro Symptoms/Deficit Medical Decision Making Patient presents here with a likely TIA she is not a lytic candidate as her NIH is now 0. No history of stroke or TIA in the past I did speak to the hospitalist will admit for observation. Medical Records I reviewed the patient's medical records. Lab Data I reviewed the patient's lab results. 11/02/24 15:55 11/02/24 15:55 Radiology Impressions Chest X-Ray 11/02/24 15:29 IMPRESSION: 1. Large hiatal hernia. No acute cardiopulmonary finding. Head CT 11/02/24 15:29 IMPRESSION: 1. No evidence of intracranial hemorrhage or mass effect. 2. No acute intracranial findings. Notified Jeniffer Riley MD at 11/02/2024 3:46 PM. Laboratory Results WBC 5.52 10^3/uL (3.29-11.43) 11/02/24 15:55 RBC 3.98 10^6/uL (3.85-5.65) 11/02/24 15:55 Hgb 10.30 g/dL (11.27-16.99) L 11/02/24 15:55 Hct 32.8 % (36-47) L 11/02/24 15:55 MCV 82.4 fl (85-98) L 11/02/24 15:55 MCH 25.9 pg (27-33) L 11/02/24 15:55 MCHC 31.4 g/dL (30-55) 11/02/24 15:55 RDW 14.9 % (12.1-15.1) 11/02/24 15:55 Plt Count 146 10^3/cmm (157-399) L 11/02/24 15:55 MPV 9.2 fL (7.4-10.4) 11/02/24 15:55 Neut % (Auto) 94.6 % 11/02/24 15:55 Lymph % (Auto) 3.8 % 11/02/24 15:55 [place] % (Auto) 0.7 % 11/02/24 15:55 Eos % (Auto) 0.0 % 11/02/24 15:55 Baso % (Auto) 0.4 % 11/02/24 15:55 Neut # (Auto) 5.22 10^3/uL (1.8-7.7) 11/02/24 15:55 Lymph # (Auto) 0.2 10^3/uL (0.8-4.8) L 11/02/24 15:55 [place] # (Auto) 0.0 10^3/uL (0.2-0.9) L 11/02/24 15:55 Eos # (Auto) 0.0 10^3/uL (0.0-0.8) 11/02/24 15:55 Baso # (Auto) 0.0 10^3/uL (0.0-0.1) 11/02/24 15:55 Nucleated RBC % (auto) 0 % 11/02/24 15:55 Nucleated RBCs # 0.0 /100WBC 11/02/24 15:55 PT 14.00 SECONDS (12.1-14.9) 11/02/24 15:55 INR 1.01 (0.8-1.2) 11/02/24 15:55 APTT 28.5 SECONDS (23.9-36.7) 11/02/24 15:55 Sodium 137 mmol/L (136-145) 11/02/24 15:55 Potassium 3.7 mmol/L (3.5-5.1) 11/02/24 15:55 Chloride 103 mmol/L (98-107) 11/02/24 15:55 Carbon Dioxide 21 mmol/L (22-29) L 11/02/24 15:55 Anion Gap 16.7 (5-19) 11/02/24 15:55 BUN 18 mg/dL (8-23) 11/02/24 15:55 Creatinine 1.4 mg/dL (0.5-0.9) H 11/02/24 15:55 GFR Calculation Not Reportable 11/02/24 15:55 Glucose 147 mg/dL (65-115) H 11/02/24 15:55 POC Glucose 147 mg/dL (70-110) H 11/02/24 16:02 Calculated Osmolality 289 mOsm/kg (285-295) 11/02/24 15:55 Calcium 9.0 mg/dL (8.5-10.5) 11/02/24 15:55 Total Bilirubin 0.3 mg/dL (0.15-1.2) 11/02/24 15:55 AST 17 U/L (0-32) 11/02/24 15:55 ALT 14 U/L (0-33) 11/02/24 15:55 Alkaline Phosphatase 44 U/L (35-105) 11/02/24 15:55 Total Protein 6.7 g/dL (6.6-8.7) 11/02/24 15:55 Albumin 3.7 g/dL (3.5-5.2) 11/02/24 15:55 Globulin 3.0 g/dL (1.3-4.6) 11/02/24 15:55 TSH 1.07 uIU/mL (0.27-4.20) 11/02/24 15:55 Urine Color Yellow (Yellow) 11/02/24 16:23 Urine Appearance Clear (CLEAR) 11/02/24 16:23 Urine pH 5 (5-7) 11/02/24 16:23 Ur Specific [place] 1.015 (1.005-1.030) 11/02/24 16:23 Urine Protein Neg (Negative) 11/02/24 16:23 Urine Glucose (UA) Norm (Normal) 11/02/24 16:23 Urine Ketones Negative (Negative) 11/02/24 16:23 Urine Blood 2+ (Negative) H 11/02/24 16:23 Urine Nitrate Negative (Negative) 11/02/24 16:23 Urine Bilirubin Neg (Negative) 11/02/24 16:23 Urine Urobilinogen Norm mg/dL (Negative) 11/02/24 16:23 Ur Leukocyte Esterase Negative (Negative) 11/02/24 16:23 Urine RBC 0-2 /hpf (0-2) 11/02/24 16:23 Urine WBC 6-10 /hpf (0-5) 11/02/24 16:23 Ur Squamous Epith Cells 0-5 /hpf (0-5) 11/02/24 16:23 Amorphous Sediment Not Reportable 11/02/24 16:23 Urine Bacteria 4+ /hpf (NONE) H 11/02/24 16:23 Hyaline Casts 1.21 /lpf 11/02/24 16:23 Urine Opiates Screen Negative ng/mL (Negative) 11/02/24 16:23 Ur Barbiturates Screen Negative ng/mL (Negative) 11/02/24 16:23 Ur Phencyclidine Scrn Negative ng/mL (Negative) 11/02/24 16:23 Ur Amphetamines Screen Negative ng/mL (Negative) 11/02/24 16:23 U Benzodiazepines Scrn Negative ng/mL (Negative) 11/02/24 16:23 Urine Cocaine Screen Negative ng/mL (Negative) 11/02/24 16:23 U Marijuana (THC) Screen Negative ng/mL (Negative) 11/02/24 16:23 All radiology interpretation(s) finalized by discharge EKG Data EKG 1: I personally reviewed and interpreted this EKG as follows: EKG interpretation date: 11/02/24 EKG interpretation time: 15:22 Interpretation: sinus tach hr [address] elevation qrs 88 qtc 454 Discharge Plan Discharge Patient Disposition: Admitted As Inpatient Clinical Impression: Brain TIA Condition: Stable Prescriptions: No Action tramadol 50 mg Tablet 50 mg PO Q6H PRN (Reason: unknown) metoprolol tartrate 25 mg Tablet 25 mg PO BID gemfibrozil 600 mg Tablet 600 mg PO BID ferrous sulfate 325 mg (65 mg iron) Tablet 325 mg PO QID meloxicam 15 mg Tablet 15 mg PO DAILY paroxetine HCl 40 mg Tablet 40 mg PO DAILY pantoprazole 40 mg Tablet,Delayed Release (Dr/Ec) 40 mg PO DAILY montelukast 10 mg Tablet 10 mg PO DAILY Asmanex HFA 200 mcg/actuation Hfa Aerosol Inhaler 2 puff INHALATION DAILY olanzapine 10 mg tablet 10 mg PO DAILY losartan 50 mg tablet 50 mg PO DAILY famotidine 40 mg tablet 40 mg PO DAILY clonidine HCl 0.2 mg tablet 0.2 mg PO BID Ozempic 0.25 mg or 0.5 mg (2 mg/3 mL) pen injector 0.25 mg SUBCUT Q7D furosemide 40 mg tablet 40 mg PO DAILY trazodone 150 mg Tablet 150 mg PO DAILY Referrals: Alejandro Green MD [Primary Care Provider] - Patient Instructions: Altered Mental Status (ED) Print Language: Arabic Coding Level of Care Code ED 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
[2024-11-02] MEDS: sodium chloride 0.9% 1,000 ML 999 ML IV (15:56)
[2024-11-02 16:00] LABS: Basophils % 0.4 %; Hematocrit 32.8 % (36-47); Lymphocytes # 0.2 10^3/uL (0.8-4.8); Lymphocytes % 3.8 %; Mean Corpuscular HGB Conc 31.4 g/dL (30-55); Mean Corpuscular Hemoglobin 25.9 pg (27-33); Mean Corpuscular Volume 82.4 fl (85-98); Mean Platelet Volume 9.2 fL (7.4-10.4); Monocytes % 0.7 %; Neutrophils # 5.22 10^3/uL (1.8-7.7); Neutrophils % 94.6 %; Nucleated Red Blood Cells % 0 %; Platelet Count 146 10^3/cmm (157-399); Red Blood Count 3.98 10^6/uL (3.85-5.65); Red Cell Distribution Width 14.9 % (12.1-15.1); White Blood Count 5.52 10^3/uL (3.29-11.43)
[2024-11-02 16:06] LABS: Glucose Point of Care 147 mg/dL (70-110)
[2024-11-02 16:14] LABS: INR 1.01 (0.8-1.2)
[2024-11-02 16:15] LABS: Partial Thromboplastin Time 28.5 SECONDS (23.9-36.7)
[2024-11-02 16:19] LABS: Alanine Aminotransferase 14 U/L (0-33); Albumin Level 3.7 g/dL (3.5-5.2); Alkaline Phosphatase 44 U/L (35-105); Anion Gap 16.7 (5-19); Aspartate Amino Transferase 17 U/L (0-32); Blood Urea Nitrogen 18 mg/dL (8-23); Carbon Dioxide 21 mmol/L (22-29); Chloride 103 mmol/L (98-107); Glucose 147 mg/dL (65-115); Osmolality Calculated 289 mOsm/kg (285-295); Potassium 3.7 mmol/L (3.5-5.1); Sodium 137 mmol/L (136-145); Total Bilirubin 0.3 mg/dL (0.15-1.2); Total Protein 6.7 g/dL (6.6-8.7)
[2024-11-02 16:36] LABS: Thyroid Stimulating Hormone 1.07 uIU/mL (0.27-4.20)
[2024-11-02 16:47] LABS: Bacteria Urine 4+ /hpf; Hyaline Casts Urine 1.21 /lpf; RBC Urine 0-2 /hpf (0-2); Squamous Epithelial Cell Urine 0-5 /hpf (0-5)
[2024-11-02 16:51] LABS: Amphetamines Screen Urine Negative (Negative); Barbiturates Screen Urine Negative (Negative); Benzodiazepines Screen Urine Negative (Negative); Cocaine Screen Urine Negative (Negative); Opiate Screen Urine Negative (Negative); PCP Screen Urine Negative (Negative); THC Screen Urine Negative (Negative)
[2024-11-02 16:56] LABS: Add Urine Microscopic? YES; Bilirubin Urine Neg (Negative); Blood Urine 2+ (Negative); Glucose Urine UA Norm (Normal); Ketones Urine Negative (Negative); Leukocyte Esterase Urine Negative (Negative); Nitrate Urine Negative (Negative); Protein Urine Neg (Negative); Specific Gravity, Urine 1.015 (1.005-1.030); Urine Appearance Clear (CLEAR); Urine Color Yellow (Yellow); Urobilinogen Urine Norm (Negative); pH Urine 5 (5-7)
[2024-11-02 16:57] LABS: Add Urine Culture? Yes
[2024-11-02 17:17] LABS: Slide Review Slide Review Perform
[2024-11-02] MEDS: aspirin 81 mg Chew Tablet 324 MG PO (17:37)
--- NOTE | 2024-11-02 17:46 | CTR_ITS ---
PROCEDURE INFORMATION: Exam: CTA Head With Contrast, Arteriography Exam date and time: 11/02/2024 7:00 PM Age: 79 years old Clinical indication: Weakness; Additional info: TIA TECHNIQUE: Imaging protocol: Computed tomographic angiography of the head with contrast. Exam focused on the arteries. 3D rendering (Not supervised by radiologist): MIP and/or 3D reconstructed images were created by the technologist. Radiation optimization: All CT scans at this facility use at least one of these dose optimization techniques: automated exposure control; mA and/or kV adjustment per patient size (includes targeted exams where dose is matched to clinical indication); or iterative reconstruction. Contrast material: OMNIPAQUE 350; Contrast volume: 100 ml; Contrast route: INTRAVENOUS (IV); COMPARISON: CT head thrombolytic [id number] 11/02/2024 3:40 PM RADIATION DOSE METRICS: Total DLP (mGy-cm): 1010.82 FINDINGS: ANTERIOR CIRCULATION: Right internal carotid artery: Intracranial segment is patent with no significant stenosis. No aneurysm. Right middle cerebral artery: No occlusion or significant stenosis. No aneurysm. Right anterior cerebral artery: No occlusion or significant stenosis. No aneurysm. Left internal carotid artery: Intracranial segment is patent with no significant stenosis. No aneurysm. Left middle cerebral artery: No occlusion or significant stenosis. No aneurysm. Left anterior cerebral artery: No occlusion or significant stenosis. No aneurysm. POSTERIOR CIRCULATION: Right vertebral artery: No occlusion or significant stenosis. No aneurysm. Left vertebral artery: No occlusion or significant stenosis. No aneurysm. Basilar artery: No occlusion or significant stenosis. No aneurysm. Right posterior cerebral artery: No occlusion or significant stenosis. No aneurysm. Left posterior cerebral artery: No occlusion or significant stenosis. No aneurysm. Brain: No hemorrhage. No edema. Moderate diffuse cerebral atrophy and sequela of chronic small vessel ischemic disease. No mass effect. Cerebral ventricles: No ventriculomegaly. Bones/joints: Unremarkable. No acute fracture. Soft tissues: Unremarkable. PROCEDURE INFORMATION: Exam: CTA Neck With Contrast Exam date and time: 11/02/2024 7:00 PM Age: 79 years old Clinical indication: Weakness; Additional info: TIA TECHNIQUE: Imaging protocol: Computed tomographic angiography of the neck with contrast. Exam focused on the cervical segments of the vasculature. 3D rendering (Not supervised by radiologist): MIP and/or 3D reconstructed images were created by the technologist. Radiation optimization: All CT scans at this facility use at least one of these dose optimization techniques: automated exposure control; mA and/or kV adjustment per patient size (includes targeted exams where dose is matched to clinical indication); or iterative reconstruction. Contrast material: OMNIPAQUE 350; Contrast volume: 100 ml; Contrast route: INTRAVENOUS (IV); COMPARISON: CT head thrombolytic [id number] 11/02/2024 3:40 PM RADIATION DOSE METRICS: Total DLP (mGy-cm): 1010.82 FINDINGS: Right common carotid artery: No stenosis. No dissection or occlusion. Right internal carotid artery: No stenosis of the extracranial segment. No dissection or occlusion. Right external carotid artery: No occlusion or stenosis of the origin. Left common carotid artery: No stenosis. No dissection or occlusion. Left internal carotid artery: Mild stenosis at the origin. No dissection or occlusion. Left external carotid artery: No occlusion or stenosis of the origin. Right vertebral artery: No stenosis. No dissection or occlusion. Left vertebral artery: No stenosis. No dissection or occlusion. Soft tissues: Normal. No significant soft tissue swelling. Bones/joints: No acute fracture. CT/CT angio headne* [id number] IMPRESSION: No large vessel stenosis or occlusion. IMPRESSION: No severe stenosis or occlusion. Mild stenosis at the origin of the left internal carotid artery. REFERENCES: NASCET CRITERIA. The degree of stenosis in the cervical segment of the internal carotid artery is based on NASCET criteria. Normal is no stenosis. Mild is less than 50% stenosis. Moderate is 50-69% stenosis. Severe is 70% to 99% stenosis. Total occlusion is no detectable patent lumen.
--- NOTE | 2024-11-02 17:59 | PM.HP ---
Providers/Chief Complaint Admitting Physician: Luis Arce MD Primary Care Provider: Alejandro Green MD Chief Complaint: high hr, confusion, shakes History of Present Illness Kavitha Kraus is a 79 year old female with a past medical history of hypertension, hyperlipidemia, fast heart rate, who presents [facility] due to confusion, word finding difficulty, according to patient, at about 2 PM, she developed according to daughter episodes of confusion, word finding difficulty, all she notices that she suddenly felt very cold, had significant chills. Denies any chest pain, no palpitations, no lightheadedness, dizziness, no nausea, no vomiting, slurring of words, no focal weakness, no paresthesias, no history of stroke, she denies any recent illness, she was diagnosed with a UTI back in August but does report intermittent dysuria, no abdominal pain, no diarrhea, she does require frequent interaction with my questioning, we can get mostly questions appropriately, cannot discern a facial droop, slurring her words, her NIH stroke scale on admission was 0, currently NIH stroke scale is 0, she reports a history of fast heart rate but denies a history of atrial fibrillation, is not on any blood thinners, denies a cardiovascular history, Review of Systems Const: Reports: chills; Denies: fever(s), fatigue or malaise Card: Denies: chest pain Resp: Denies: dyspnea GI: Denies: abdominal pain : Denies: flank pain or difficulty voiding Musc: Denies: neck pain or back pain Neuro: Denies: headache(s), numbness in extremities, weakness in extremities, frequent falls, dizziness, vertigo, confusion, behavioral changes or Slurred speech present Medications/Allergies Home Medications ?Medication ?Instructions ?Recorded ?Confirmed ?Last Taken ?Type ferrous sulfate 325 mg (65 mg 325 mg PO QID 09/24/24 11/02/24 11/02/24 History iron) tablet gemfibrozil 600 mg tablet 600 mg PO BID 09/24/24 11/02/24 11/02/24 History meloxicam 15 mg tablet 15 mg PO DAILY 09/24/24 11/02/24 11/02/24 History metoprolol tartrate 25 mg tablet 25 mg PO BID 09/24/24 11/02/24 11/02/24 History mometasone 200 mcg/actuation HFA 2 puff inhalation DAILY 09/24/24 11/02/24 11/02/24 History aerosol inhaler (Asmanex HFA) montelukast 10 mg tablet 10 mg PO DAILY 09/24/24 11/02/24 11/02/24 History pantoprazole 40 mg tablet,delayed 40 mg PO DAILY 09/24/24 11/02/24 11/02/24 History release paroxetine HCl 40 mg tablet 40 mg PO DAILY 09/24/24 11/02/24 11/02/24 History tramadol 50 mg tablet 50 mg PO Q6H PRN unknown 09/24/24 11/02/24 11/02/24 History clonidine HCl 0.2 mg tablet 0.2 mg PO BID 11/02/24 11/02/24 11/02/24 History famotidine 40 mg tablet 40 mg PO DAILY 11/02/24 11/02/24 11/02/24 History furosemide 40 mg tablet 40 mg PO DAILY 11/02/24 11/02/24 11/02/24 History losartan 50 mg tablet 50 mg PO DAILY 11/02/24 11/02/24 11/02/24 History olanzapine 10 mg tablet 10 mg PO DAILY 11/02/24 11/02/24 11/02/24 History semaglutide 0.25 mg or 0.5 mg (2 0.25 mg SUBCUT Q7D 11/02/24 11/02/24 Unknown History mg/3 mL) subcutaneous pen injector (Ozempic) trazodone 150 mg tablet 150 mg PO DAILY 11/02/24 11/02/24 Unknown History Allergies Allergy/AdvReac Type Severity Reaction Status Date / Time ciprofloxacin (From Cipro) Allergy ALGY-Hives Verified 09/24/24 19:46 Penicillins Allergy ALGY-Rash Verified 09/24/24 19:46 PFSH Acute PFSH: Medical History (Updated 11/02/24 @ 18:02 by Luis Arce MD) Hyperlipidemia Hypertension Social History (Updated 11/02/24 @ 18:03 by Luis Arce MD) Smoking and tobacco/nicotine status: never used tobacco/nicotine Alcohol intake: never Substance/Drug Use: never Vitals/I&O/Wt Last Vital Signs Temp 97.8 F 11/02/24 15:30 Pulse 120 H 11/02/24 17:30 Resp 20 H 11/02/24 17:30 BP 108/66 11/02/24 17:30 Pulse Ox 94 11/02/24 17:30 O2 Del Method Room Air 11/02/24 16:19 Weight last 48 hrs Weight 87.997 kg Physical Exam Const: COMMON NORMALS: no acute distress and patient oriented x3 HENMT: COMMON NORMALS: normocephalic HEAD & SCALP: normocephalic Eye: COMMON NORMALS: Equal, round and reactive pupils present Neck/C-Spine: COMMON NORMALS: no JVD Lymph: LYMPHATIC: no lymphadenopathy noted Resp: COMMON NORMALS: normal respiratory effort, No retractions, No use of accessory muscles and clear to auscultation bilaterally AUSCULTATION: clear to auscultation bilaterally Cardio: COMMON NORMALS: no JVD, regular rate, regular rhythm, S1 normal heart sound present and S2 normal heart sound present RATE: regular rate RHYTHM: regular rhythm HEART SOUNDS: S1 normal heart sound present and S2 normal heart sound present GI: COMMON NORMALS: Normal to inspection, nondistended, normoactive bowel sounds present, Soft to palpation and non-tender Extremity: COMMON NORMALS: no pedal edema Neuro: COMMON NORMALS: patient oriented x3, CN's II-XII intact bilaterally, moves all extremities and no focal motor deficits Psych: COMMON NORMALS: mental status grossly normal Data 11/02/24 15:55 11/02/24 15:55 A&P Assessment and plan (1) Brain TIA: Plan TIA - Symptom onset was about 2 PM - NIH stroke scale admission was 0 - Reported word finding difficulty, confusion - Currently alert oriented x 2, following all commands, no focal neurologic deficits, no dizziness - Head CT no acute findings - Plan -Aspirin, statin - Telemetry monitoring - Is tachycardic, heart rates in the 120s, looks sinus, she takes beta-ezra this evening has not taken it yet - Cardiac echo - CT head and neck - IV fluids -Check A1c -Lipid panel - Resume home blood pressure medications - Reported chills when this all happened at 2 PM, currently here afebrile, UA and no evidence of UTI, chest x-ray no focal pneumonia, Kernig sign negative, brudunskisign negative - Full code - Lovenox for DVT prophylaxis PDMP PDMP Reviewed: Not Reviewed Attestations Medical Necessity Statement*: Patient requires hospitalization, outpatient with observation, for TIA Diagnoses Brain TIA G45.9
[2024-11-02] MEDS: pantoprazole 40 mg SDV IVP (18:48)
[2024-11-02] MEDS: sodium chloride 0.9% 1,000 ML 75 ML IV (18:49)
[2024-11-02] MEDS: iohexol 350 mg/mL 500 mL Btl (per mL) IV (19:07)
[2024-11-02] MEDS: enoxaparin 40 mg/0.4 mL Syringe SUBCUT (21:41)
[2024-11-02] MEDS: gemfibrozil 600 mg Tablet PO (21:41)
[2024-11-02] MEDS: metoprolol tartrate 25 mg Tablet PO (21:42)
[2024-11-03] VITALS (57 sets, daily range): BP systolic 85–146; BP diastolic 49–97; PULSE 94–117; RESP 1–31; TEMP 36.6–38.9; O2SAT 92–98; BMI 34.5
[2024-11-03] MEDS: acetaminophen 325 mg Tablet 650 MG PO ×2 (00:41→12:32)
--- NOTE | 2024-11-03 00:44 | PC.NURSE ---
Upon arriving to the floor from the ED, patient shaking and stating she was so cold. Patient's hands and feet cold to touch. Patient's temperature 98.6. Patient heart rate 130s. Patient given scheduled Metoprolol. Patient given multiple blankets. Family voiced concern, stating that the shaking is what she did right before she started not acting right. Patient's neuro assessment WNL and patient oriented x4. Approximately one hour later, patient was no longer shaking and stated that she did not feel cold anymore.
--- NOTE | 2024-11-03 00:51 | PC.NURSE ---
Upon arrival to floor from ED, family also stated that patient felt short of breath, however when asking patient about it, patient stated that she felt congested. Patient oxygen saturation WNL on room air, however 2 liters nasal cannula placed on patient for comfort.
[2024-11-03 04:56] LABS: Hematocrit 27.8 % (36-47); Mean Corpuscular HGB Conc 30.9 g/dL (30-55); Mean Platelet Volume 10.7 fL (7.4-10.4); Platelet Count 104 10^3/cmm (157-399); Red Blood Count 3.31 10^6/uL (3.85-5.65); Red Cell Distribution Width 14.9 % (12.1-15.1); White Blood Count 14.42 10^3/uL (3.29-11.43)
[2024-11-03 05:21] LABS: Chol HDL Ratio 2.58 mg/dL (0.0-4.40); Cholesterol 98 mg/dL (0-200); HDL Cholesterol 38 mg/dL (60-100); LDL Cholesterol Calculated 44 mg/dL (50-129); LDL HDL Ratio 1.16 RATIO (0.00-3.22); Triglycerides 79 mg/dL (0-150)
[2024-11-03 05:27] LABS: Alanine Aminotransferase 14 U/L (0-33); Alkaline Phosphatase 33 U/L (35-105); Anion Gap 16.8 (5-19); Aspartate Amino Transferase 22 U/L (0-32); Blood Urea Nitrogen 19 mg/dL (8-23); Calcium 8.1 mg/dL (8.5-10.5); Carbon Dioxide 18 mmol/L (22-29); Chloride 104 mmol/L (98-107); Creatinine Clr Calc Pharmacy 29.4719; Globulin 2.4 g/dL (1.3-4.6); Glucose 138 mg/dL (65-115); Magnesium 1.3 mg/dL (1.7-2.3); Osmolality Calculated 284 mOsm/kg (285-295); Phosphorus 3.3 mg/dL (2.5-4.5); Potassium 3.8 mmol/L (3.5-5.1); Sodium 135 mmol/L (136-145); Thyroid Stimulating Hormone 0.45 uIU/mL (0.27-4.20); Total Bilirubin 0.4 mg/dL (0.15-1.2); Total Protein 5.4 g/dL (6.6-8.7)
[2024-11-03 05:28] LABS: Estmated Average Glucose 103; Hemoglobin A1C 5.2 % (4.0-6.0)
[2024-11-03 05:40] LABS: Absolute Segmented Neutrophil 9.4 10/cmm (1.6-7.1); Eosinophils 0 %; Lymphocytes 5 %; Monocytes Absolute 0.9 10^3/cmm (0.1-0.6); Segmented Neutrophils 65 %; Slide Review Slide Review Perform; Total Cells Counted 100 (0-100)
[2024-11-03 05:41] LABS: Absolute Neutrophil 12.4 10^3/cmm (1.4-6.5); Platelet Estimate Decreased (Normal)
--- NOTE | 2024-11-03 08:09 | PHA.VACGOAL ---
Vancomycin Goal - Therapy Day of therpy:: Day []of [] . Actual body weight (kg): 198 lb - Data Labs: WBC 14.42 10^3/uL (3.29-11.43) H 11/03/24 04:30 RBC 3.31 10^6/uL (3.85-5.65) L 11/03/24 04:30 Hgb 8.60 g/dL (11.27-16.99) L 11/03/24 04:30 Hct 27.8 % (36-47) L 11/03/24 04:30 MCV 84.0 fl (85-98) L 11/03/24 04:30 MCH 26.0 pg (27-33) L 11/03/24 04:30 MCHC 30.9 g/dL (30-55) 11/03/24 04:30 RDW 14.9 % (12.1-15.1) 11/03/24 04:30 Sodium 135 mmol/L (136-145) L 11/03/24 04:30 Potassium 3.8 mmol/L (3.5-5.1) 11/03/24 04:30 Chloride 104 mmol/L (98-107) 11/03/24 04:30 Carbon Dioxide 18 mmol/L (22-29) L 11/03/24 04:30 Anion Gap 16.8 (5-19) 11/03/24 04:30 BUN 19 mg/dL (8-23) 11/03/24 04:30 Creatinine 1.7 mg/dL (0.5-0.9) H 11/03/24 04:30 GFR Calculation Not Reportable 11/03/24 04:30 Treatment plan:: new consult Regimen:: PULSE DOSE TROUGH 11/04 0700
[2024-11-03] MEDS: magnesium sulfate premix 1 GM/100 ML PIGGYBACK IV (09:03)
[2024-11-03] MEDS: trazodone 150 mg Tablet PO (09:07)
[2024-11-03] MEDS: gemfibrozil 600 mg Tablet PO ×2 (09:07→18:48)
[2024-11-03] MEDS: sodium chloride 0.9% 1,000 ML 125 ML IV ×2 (09:07→18:49)
[2024-11-03] MEDS: OLANZapine 10 mg TABLET PO (09:07)
[2024-11-03] MEDS: PARoxetine 20 mg Tablet 40 MG PO (09:07)
[2024-11-03] MEDS: meropenem 500 mg SDV IVP ×2 (09:07→20:03)
[2024-11-03] MEDS: aspirin 81 mg EC Tablet PO (09:07)
--- NOTE | 2024-11-03 09:09 | CT_ITS ---
WS: [id number] CT CHEST, ABDOMEN, AND PELVIS TECHNIQUE: Noncontrast CT of the chest, abdomen, and pelvis with coronal and sagittal reformatted images. CLINICAL INFORMATION: fever, sepsis COMPARISON: None. DLP: 974.[address] scans at [facility] use at least one of these dose optimization techniques: automated exposure control; mA and/or kV adjustment per patient size (includes targeted exams where dose is matched to clinical indication); or iterative reconstruction. CT CHEST: Large esophageal hiatal hernia with partial intrathoracic stomach. Patchy perihilar infiltrates. Recommend correlation for pneumonitis. No focal consolidation. Bibasilar atelectasis. Aortic calcification. Coronary calcification. CT ABDOMEN AND PELVIS: Delayed nephrogram LEFT kidney with delayed excretion. Retained contrast in an upper calyx with persistent patchy superior pole nephrogram suspicious for pyelonephritis. No significant hydronephrosis. No obstructing renal or ureteral calculi. Cholecystectomy. Mild hepatomegaly. Mild splenomegaly. Large esophageal hernia. Fatty atrophy of the pancreas. Adrenal glands are normal. Aortic calcification. Normal caliber abdominal aorta. Persistent contrast in the bladder. Sigmoid diverticulosis. [place] [id number] IMPRESSION: 1. Suspected pyelonephritis LEFT kidney with delayed emptying described above. 2. Prior cholecystectomy. 3. Large esophageal hernia with partial intrathoracic stomach. 4. Patchy mild perihilar infiltrates. Recommend correlation for pneumonitis.
[2024-11-03 09:15] LABS: Erythrocyte Sedimentation Rate 21 mm/hr (0-15)
[2024-11-03] MEDS: vancomycin 1,500 MG/300 ML PIGGYBACK 200 MG IV (09:18)
[2024-11-03] MEDS: sodium chloride 0.9% 1,000 ML 999 ML IV (09:19)
[2024-11-03 09:33] LABS: Lactic Sepsis W/Reflex 2.2 mmol/L (0.5-2.2)
[2024-11-03 09:34] LABS: C Reactive Protein 174.3 mg/L (0.0-4.9)
--- NOTE | 2024-11-03 09:37 | PC.CHAP ---
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 [] Patient/Family/Request visit [] Outpatient visit [] Follow-up visit [] Physician referral [] Code/Alert [x] Routine visit [] Staff referral [] Actively dying [] Patient sleeping [x] Family support [] [] Out of room [] Palliative care [] [] Receiving care in room [] Pre-surgical visit [] Trauma [] Long length of stay [] ICU visit [] Other: Relational/Emotional Strength [x] Patient feels connected with others/family/visitors/staff [] Distress [] Loneliness/isolation [] Abandonment Spirituality of Patient [x] Person of Tanya [] Attends Catholic of their Atnya [x] Believes in Prayer [] Reads Bible or Methodist materials [] There are Spiritual issues to be addressed Brick Grader Interventions [x] Prayer [x] Active listening [] Non-anxious presence [x] Spiritual/emotional support [] Crisis/trauma care [] Spiritual counseling [] Bereavement support [] Provided bereavement packet [] Provided Bible/devotional materials [] Provided toy/stuffed animal, coloring book to patient or family member [] Provided Communion [] Anointing/[place] [] Salvation [x] Completed spiritual assessment [] Other: Impact on Illness or Injury [] Angry [] Fearful [] Anxious [] Often cries [] Exhaustion [] Unable to work [] Unable to attend holiness [] Unable to walk/stand [] Unable to read [] Unable to drive [] Unable to eat/drink [] Unable to sleep [] Unable to be with family [] Patient intubated [] Other: Summary Time spent with patient 5 min
[2024-11-03 09:38] LABS: Procalcitonin 51.76 ng/mL (0-0.5)
--- NOTE | 2024-11-03 09:44 | PC.NURSE ---
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
[2024-11-03 10:54] LABS: Reflex Lactate Order REFLEX LACTIC ORDERD
--- NOTE | 2024-11-03 12:19 | PC.OT ---
OT EVALUATION ATTEMPTED. PATIENT STATES, NOT TODAY, TOMORROW. I'M COLD
--- NOTE | 2024-11-03 12:26 | PC.NURSE ---
Pt reported she was shaking and cold. Oral temp taken and 102.[address] Montano notified. Tylenol given, extra blankets removed, and room cooled down.
--- NOTE | 2024-11-03 13:09 | XR_ITS ---
WS: [id number] Exam: XR chest 1V portable [id number] Date/Time of Exam: 11/03/2024 1:09 PM Reason For Exam: Post PICC insertion Comparison 11/02/2024. A right-sided PICC line is in place and appears to end in the lower one third of the SVC in good position. The lungs are fully expanded. There appears to be some pulmonary vascular congestion that has developed since the last exam. Heart size top limits normal. No pleural effusions or pneumothorax. Bony structures are intact. XR/XR chest 1V portable [id number] IMPRESSION: 1. Right-sided PICC line ending in the lower one third of the SVC. 2. There appears to be mild pulmonary vascular congestion which has developed s mckinley the last exam. Appearance suspicious for low-grade CHF.
--- NOTE | 2024-11-03 13:14 | US_ITS ---
WS: [id number] RENAL ULTRASOUND HISTORY: jeannie COMPARISON: CT 11/03/2024 TECHNIQUE: 2-D and color Doppler imaging of the kidney submitted. Right kidney: 10.2 cm x 4.7 cm x 4.3 cm. Cortex: 1.8 cm Normal echogenicity with no hydronephrosis or mass. Left kidney: 10.7 cm x 5.8 cm x 5.2 cm. Cortex: 2.1 cm Normal size kidney. Perinephric stranding and areas of decreased echogenicity seen on the recent ultrasound are not apparent by CT. No mass identified. No definite hydronephrosis. Aorta: Normal. Urinary Bladder: Urinary bladder is distended. US/US renal BI* [id number] IMPRESSION: 1. No renal obstruction. LEFT renal pelvis is more difficult to visualize in t he RIGHT. There is no evidence for significant hydronephrosis. 2. Well distended urinary bladder.
[2024-11-03 13:18] LABS: Lactic Acid level (Lactate) 3.5 mmol/L (0.5-2.2)
--- NOTE | 2024-11-03 14:16 | PICC.NOTE ---
Double lumen PICC placed to right basilic vein. Referred to vascular access nurse for PICC placement due to sepsis and possible need for vasopressors. Risks and benefits discussed and informed consent obtained from pt. Right arm assessed with right basilic vein measuring 4.2 mm, straight, and apparent best choice for placement. Using sterile technique and MST, right basilic vein accessed x 1 stick. Mid-arm circumference measured 10 cm from right AC 37 cm. Trimmed cath 42 cm with 0 cm external length noted. CXR shows tip in distal SVC, in good position for use per radiologist. Line secured with stat-lock. Insertion site covered with Biopatch and TSM. Report given to bedside nurse, Jarad.
--- NOTE | 2024-11-03 14:27 | PC.NURSE ---
Pt transferred to ICU 10 via bed.
--- NOTE | 2024-11-03 15:01 | P.PN_ITS ---
Subjective 2 Subjective: - Patient was examined this morning, she did have a fever 101.8 overnight complained of chills - She really does not have any headache, no blurry vision, no neck pain, neck stiffness, no nausea, no vomiting, she is on 2 L but denies a cough, no shortness of breath, no abdominal pain, no flank pain, no diarrhea, no dysuria, no hematuria - Patient was preemptively started on br oad-spectrum antibiotic therapy as her blood work suggest sepsis, creatinine up to 1.7, CRP 174, Pro-Jesus 51.76, lactic acid 2.2, WBC 14.40 blood pressures are soft - She was given a liter bolus, albumin, started on vancomycin, meropenem - CT chest and pelvis ordered - CT chest abdomen pelvis show pyeloneph ritis on the left, no obstructive uropathy, due to concerns for sepsis, septic shock she was moved down to ICU - She will be given another liter bolus, albumin, continue vancomycin, meropenem, Place Schmitz catheter, moved to ICU for close monitoring - Hemoglobin down to 8.6, platelet count down to 104 - PICC line order placed - All blood pressure medications have be en held Vitals/I&O/Wt Last Vital Signs Temp 102.1 F H 11/03/24 12:26 Pulse 108 H 11/03/24 11:46 Resp 18 11/03/24 11:46 BP 117/70 11/03/24 11:46 Pulse Ox 96 11/03/24 11:46 O2 Del Method Nasal Cannula 11/03/24 14:48 O2 Flow Rate 2 11/03/24 00:38 11/03/24 11/03/24 11/03/24 06:59 14:59 22:59 Intake Total 100 / 1100 2801.667 / 2801.667 Balance 100 / 1100 2801.667 / 2801.667 Weight last 48 hrs Weight 88.5 kg Weight 89.811 kg Weight 87.997 kg Physical Exam 2 Const: COMMON NORMALS: no acute distress and patient oriented x3 O RIENTATION/CONSCIOUSNESS: Yes awake, Yes oriented to person and Yes oriented to place Resp: COMMON NORMALS: normal respiratory effort, No retractions and No use of accessory muscles AUSCULTATION: crackles and wheezes Cardio: COMMON NORMALS: regular rate, regular rhythm, S1 normal heart sound present and S2 normal heart sound present RATE: regular rate RHYTHM: r egular rhythm HEART SOUNDS: S1 normal heart sound present and S2 normal heart sound present GI: COMMON NORMALS: Normal to inspection, nondistended, normoactive bowel sounds present, Soft to palpation and non-tender PALPATION: Yes Soft to palpation Extremity: COMMON NORMALS: no pedal edema Neuro: COMMON NORMALS: patient oriented x3, CN's II-XII intact bilaterally, moves all extremities and no focal motor deficits SENSORIUM/ORIENTATION: Yes oriented to person and Yes oriented to place Psych: COMMON NORMALS: mental status grossly normal Skin: COMMON NORMALS: no rashes or lesions noted GENERAL SKIN EXAM: no rashes or lesions noted Sepsis: Is patient septic: Yes Focused sepsis exam performed: Yes F ocused sepsis exam: DP PT pulses palpable, cap refill greater than 2 seconds, no mottling Date exam was performed: 11/03/24 Time exam was performed: 08:30 Data 11/03/24 04:30 11/03/24 04:30 Micro: Microbiology 11/03/24 08:52 Blood Culture - Preliminary Blood SPECIMEN COLLECTED 11/03/24 08:58 Blood Culture - Preliminary Blood SPECIMEN COLLECTED 11/02/24 16:23 Urine Culture - Preliminary Urine,Clean Catch A&P Assessment and plan (1) Brain TIA: (2) Sepsis: (3) Septic shock: (4) Anemia: (5) Thrombocytopenia: (6) CT (acute kidney injury): (7) Pyelonephritis: Plan Sepsis, septic shock -Source likely pyelonephritis left kidney -Also concerns for aspiration pneumonia, given CT scan findings below, hiatal hernia - CT/[place] [id number] IMPRESSION: 1. Suspected pyelonephritis LEFT kidney with delayed emptying described above. 2. Prior cholecystectomy. 3. Large esophageal hernia with partial intrathoracic stomach. 4. Patchy mild perihilar infiltrates. Recommend correlation for pneumonitis. Plan -Moved to ICU -Sepsis bolus -Albumin therapy -Vancomycin -Meropenem -Blood cultures -Monitor respiratory status closely -N.p.o., aspiration precautions, speech therapy eval Acute kidney injury -Secondary to sepsis -IV fluids Anemia, thrombocytopenia -Likely related to sepsis, septic shock -Monitor closely -Protonix, Carafate TIA - Symptom onset was about 2 PM - NIH stroke scale admission was 0 - Reported word finding difficulty, confusion - Currently alert oriented x 3, following all commands, no focal neurologic deficits, no dizziness - Head CT no acute findings - Plan -Aspirin, statin - Telemetry monitoring - Cardiac echo - CT head and neck no acute findings - IV fluids - Full code - Lovenox for DVT prophylaxis Protonix, Carafate PDMP PDMP Reviewed: Not Reviewed Attestations 2 Medical Necessity Statement*: Patient requires hospitalization for sepsis, septic shock secondary pyelonephritis, concern for aspiration pneumonia, CT, anemia, thrombocytopenia Diagnoses Brain TIA G45.9 Sepsis A41.9 Septic shock A41.9; R65.21 Anemia D64[address] (acute kidney injury) N17.9 Pyelonephritis N12
[2024-11-03] MEDS: albumin 25 G/100 ML BAG 60 G IV ×2 (15:23→20:03)
[2024-11-03] MEDS: lactated ringers 1,000 ML 999 ML IV (15:24)
[2024-11-03 15:42] LABS: LAB Peripheral Smear Sent for Review
[2024-11-03] MEDS: ipratropium-albuterol 3 mL Neb INHALATION ×3 (15:47→23:36)
[2024-11-03] MEDS: pantoprazole 40 mg SDV IVP (15:58)
[2024-11-03] MEDS: sucralfate 1 gm/10 mL Oral Liq UDC PO (15:58)
[2024-11-03 16:03] LABS: Bacteria Urine None Seen /hpf; Hyaline Casts Urine 2.05 /lpf; RBC Urine 0-2 /hpf (0-2); Squamous Epithelial Cell Urine 0-5 /hpf (0-5)
[2024-11-03 16:14] LABS: Add Urine Culture? No; Add Urine Microscopic? YES; Bilirubin Urine Neg (Negative); Blood Urine 2+ (Negative); Glucose Urine UA Norm (Normal); Ketones Urine Negative (Negative); Leukocyte Esterase Urine 2+ (Negative); Nitrate Urine Negative (Negative); Protein Urine Trace (Negative); Specific Gravity, Urine 1.015 (1.005-1.030); Urine Appearance Clear (CLEAR); Urine Color Yellow (Yellow); Urobilinogen Urine Norm (Negative); pH Urine 5 (5-7)
[2024-11-03 16:17] LABS: Ferritin 66 ng/mL (15-150); Iron 8 ug/dL (37-145)
[2024-11-03 16:28] LABS: Percent Saturation 2.2 % (20-50); Total Iron Binding Capacity 355 mcg/dl; Unsaturated Iron Binding 347 ug/dL (112-347)
--- NOTE | 2024-11-03 16:46 | PC.NURSE ---
Patient received fluid bolus and albumin. Patient still hypotensive. Dr. Arce notified and gave orders to begin Levophed. Order placed.
[2024-11-03] MEDS: norepinephrine 4 MG/250 ML BAG 7.5 MG IV (17:02)
--- NOTE | 2024-11-03 17:46 | USCV_ITS ---
Kavitha Kraus Age: 79 Gender: F : 1945 Exam Date: 11/03/2024 08:15 Ordering Phys: Luis Arce MD Technologist: [place] [facility] [place]: cva BP: 130 / 78 HR: 89 Rhythm: Sinus Technical Quality: Adequate MEASUREMENTS (Male / Female) Normal Values 2D ECHO LV Diastolic Diameter PLAX 4.8 cm 4.2 - 5.9 / 3.9 - 5.3 cm IVS Diastolic Thickness 1.1 cm 0.6 - 1.0 / 0.6 - 0.9 cm IVS Systolic Thickness 1.3 cm LVPW Diastolic Thickness 1.2 cm 0.6 - 1.0 / 0.6 - 0.9 cm LVPW Systolic Thickness 1.8 cm LVOT Diameter 2.6 cm LV Ejection Fraction 2D Teich 72.2 % LV Ejection Fraction MOD 4C 53.8 % LV Ejection Fraction MOD 2C 62.6 % LV Ejection Fraction 2C AL 63.9 % LA Diameter 3.7 cm RA Systolic Volume 4C AL 83.9 ml RA Systolic Volume 4C MOD 82.5 ml Aorta at Sinotubular Diameter 2.7 cm M-MODE LA Ao Ratio MM 1.5 AV Cusp Separation MM 1.5 cm DOPPLER AV Peak Velocity 163.0 cm/s LVOT Peak Velocity 99.0 cm/s AV Area Cont Eq vti 3.9 cm squared AV Area Cont Eq pk 3.2 cm squared MV Peak Velocity 116.0 cm/s MV Area PHT 5.8 cm squared Mitral E to A Ratio 1.1 TV Peak Velocity 234.0 cm/s TR Peak Velocity 247.0 cm/s TR Peak Gradient 24.4 mmHg TV Peak E Velocity 100.0 cm/s PV Peak Velocity 91.0 cm/s FINDINGS Left Ventricle Normal left ventricular size, systolic function and wall thickness, with no regional wall motion abnormalities. Left ventricular ejection fraction is estimated at 60 %. Grade II/IV diastolic dysfunction, moderately elevated filling pressures. Right Ventricle The right ventricle is normal in size and function. Right Atrium The right atrium is normal in size. Left Atrium Moderately increased left atrial size. Mitral Valve Moderately thickened mitral valve. Moderate mitral annular calcification. No mitral valve stenosis. Mild mitral valve regurgitation. Aortic Valve Moderate aortic valve calcification. No aortic valve stenosis. Trace to mild aortic valve regurgitation. Tricuspid Valve Mild tricuspid valve regurgitation. Pulmonic Valve Structurally normal pulmonic valve without significant stenosis. There is no pulmonic regurgitation. Pericardium Normal pericardium without effusion. Aorta Normal ascending aorta dimension. IVC The inferior vena cava appears normal. CONCLUSIONS Normal left ventricular size, systolic function and wall thickness, with no regional wall motion abnormalities. Left ventricular ejection fraction is estimated at 60 %. Grade II/IV diastolic dysfunction, moderately elevated filling pressures. Moderately increased left atrial size. Moderately thickened mitral valve. Moderate mitral annular calcification. No mitral valve stenosis. Mild mitral valve regurgitation. Moderate aortic valve calcification. No aortic valve stenosis. Trace to mild aortic valve regurgitation. Mild tricuspid valve regurgitation. There is no pericardial effusion. Right atrial pressure is around 5 mm of mercury. Edy Casper MD (Electronically Signed) Final Date: 04 November 2024 21:58 S
[2024-11-03] MEDS: enoxaparin 40 mg/0.4 mL Syringe SUBCUT (20:03)
[2024-11-04] VITALS (55 sets, daily range): BP systolic 77–147; BP diastolic 48–80; PULSE 108–130; RESP 17–32; TEMP 36.8–39; O2SAT 87–100
[2024-11-04 01:39] LABS: Influenza A NEGATIVE (Negative); Influenza B NEGATIVE (Negative); Respiratory Syncytial Virus Ce NEGATIVE (Negative); SARS-CoV-2 PCR NEGATIVE (Negative)
[2024-11-04] MEDS: sodium chloride 0.9% 1,000 ML 125 ML IV ×2 (02:49→14:44)
[2024-11-04] MEDS: pantoprazole 40 mg SDV IVP ×2 (03:28→15:23)
[2024-11-04] MEDS: ipratropium-albuterol 3 mL Neb INHALATION ×4 (03:39→16:12)
[2024-11-04] MEDS: albumin 25 G/100 ML BAG 60 G IV ×2 (03:44→11:48)
[2024-11-04 04:27] LABS: Basophils % 0.3 %; Hematocrit 26.4 % (36-47); Lymphocytes # 0.6 10^3/uL (0.8-4.8); Lymphocytes % 6.4 %; Mean Corpuscular HGB Conc 30.7 g/dL (30-55); Mean Corpuscular Hemoglobin 25.5 pg (27-33); Mean Platelet Volume 12.2 fL (7.4-10.4); Monocytes # 0.4 10^3/uL (0.2-0.9); Monocytes % 4.1 %; Neutrophils # 8.43 10^3/uL (1.8-7.7); Neutrophils % 84.7 %; Nucleated Red Blood Cells % 0 %; Platelet Count 87 10^3/cmm (157-399); Red Blood Count 3.18 10^6/uL (3.85-5.65); Red Cell Distribution Width 15.5 % (12.1-15.1); White Blood Count 9.96 10^3/uL (3.29-11.43)
[2024-11-04 05:05] LABS: Slide Review Slide Review Perform
[2024-11-04] MEDS: sucralfate 1 gm/10 mL Oral Liq UDC PO ×2 (05:13→17:23)
[2024-11-04] MEDS: acetaminophen 325 mg Tablet 650 MG PO ×2 (05:48→15:30)
[2024-11-04 06:11] LABS: Alanine Aminotransferase 14 U/L (0-33); Albumin Level 3.5 g/dL (3.5-5.2); Alkaline Phosphatase 30 U/L (35-105); Anion Gap 13.9 (5-19); Aspartate Amino Transferase 20 U/L (0-32); Blood Urea Nitrogen 13 mg/dL (8-23); Calcium 8.2 mg/dL (8.5-10.5); Carbon Dioxide 19 mmol/L (22-29); Chloride 110 mmol/L (98-107); Globulin 2.4 g/dL (1.3-4.6); Glucose 125 mg/dL (65-115); Magnesium 1.8 mg/dL (1.7-2.3); Osmolality Calculated 290 mOsm/kg (285-295); Potassium 3.9 mmol/L (3.5-5.1); Sodium 139 mmol/L (136-145); Total Bilirubin 0.6 mg/dL (0.15-1.2); Total Protein 5.9 g/dL (6.6-8.7)
[2024-11-04 08:04] LABS: C Reactive Protein 272.9 mg/L (0.0-4.9)
[2024-11-04 08:08] LABS: Vancomycin Trough 6.4 ug/mL (10-15)
[2024-11-04 08:14] LABS: NT Pro B Type Natriuretic Pept 7033 pg/mL (0-450); Procalcitonin 29.12 ng/mL (0-0.5)
[2024-11-04] MEDS: vancomycin 1,250 MG/250 ML PIGGYBACK 166.67 MG IV (08:29)
[2024-11-04] MEDS: trazodone 100 mg Tablet 150 MG PO (08:29)
[2024-11-04] MEDS: aspirin 81 mg EC Tablet PO (08:29)
[2024-11-04] MEDS: meropenem 1,000 mg SDV 1000 MG IVP ×2 (08:29→21:02)
[2024-11-04] MEDS: PARoxetine 20 mg Tablet 40 MG PO (08:30)
[2024-11-04] MEDS: gemfibrozil 600 mg Tablet PO ×2 (08:30→17:23)
[2024-11-04] MEDS: OLANZapine 5 mg TABLET 10 MG PO (08:30)
[2024-11-04] MEDS: water for injection-sterile 10 ML 1000 ML (08:43)
--- NOTE | 2024-11-04 15:37 | P.PN_ITS ---
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 coli bacteremia - Discussed her sepsis, septic shock, pl an on continuing IV antibiotics, - She is needing 1 to 2 L, - Discussed PT OT, speech therapy eval, -Again seen this afternoon, discussed wi th daughter at bedside, patient has ESBL E. coli bacteremia, with sepsis, septic shock, renal ultrasound does not show any evidence of emphysematous pyelonephritis or obstructive uropathy we will monitor her closely, Vitals/I&O/Wt Last Vital Signs Temp 98.2 F 11/04/24 13:00 Pulse 120 H 11/04/24 14:00 Resp 29 H 11/04/24 13:00 BP 128/80 11/04/24 13:00 Pulse Ox 93 11/04/24 13:00 O2 Del Method Nasal Cannula 11/04/24 11:03 O2 Flow Rate 2 11/04/24 11:03 FiO2 3 11/03/24 22:00 11/04/24 11/04/24 11/04/24 06:59 14:59 22:59 Intake Total 1418.75 / 6460.375 1660 / 1660 Output Total 1150 / 2450 300 / 300 Balance 268.75 / 4010.375 1360 / 1360 Weight last 48 hrs Weight 89.5 kg Weight 88.5 kg Weight 89.811 kg Weight 87.997 kg Physical Exam 2 Const: COMMON NORMALS: no acute distress and patient oriented x3 Resp: COMMON NORMALS: normal respiratory effort, No retractions and No use of accessory muscles Cardio: COMMON NORMALS: regular rate, regular rhythm, S1 normal heart sound present and S2 normal heart sound present RATE: regular rate RHYTHM: r egular rhythm HEART SOUNDS: S1 normal heart sound present and S2 normal heart sound present GI: COMMON NORMALS: Normal to inspection, nondistended, normoactive bowel sounds present and non-tender Extremity: COMMON NORMALS: no pedal edema Neuro: COMMON NORMALS: patient oriented x3, CN's II-XII intact bilaterally, moves all extremities and no focal motor deficits Psych: COMMON NORMALS: mental status grossly normal Urinary Catheter Management: Schmitz: Cath Placed During This Visit: yes Reason for Continuing Indwelling Catheter: Accurate Measurement of Urinary Output in Critically Ill Patients Urinary Catheter Date of Insertion: 11/03/24 Urinary Catheter Time of Insertion: 15:00 Sepsis: Is patient septic: Yes Focused sepsis exam performed: Yes F ocused sepsis exam: DP PT pulses palpable, cap refill greater than 2 seconds, no mottling Date exam was performed: 11/04/24 Time exam was performed: 09:00 Data 11/04/24 03:57 11/04/24 05:47 Micro: Microbiology 11/03/24 15:40 Urine Culture - Preliminary Urine Catheterized 11/02/24 16:23 Urine Culture - Preliminary Urine,Clean Catch Gram Negative Rods Gram Negative Rods#2 11/03/24 08:52 Blood Culture - Preliminary Blood NEGATIVE TO DATE 11/03/24 08:58 Blood Culture - Preliminary Blood Escherichia coli A&P Assessment and plan (1) Brain TIA: (2) Sepsis: (3) Septic shock: (4) Anemia: (5) Thrombocytopenia: (6) CT (acute kidney injury): (7) Pyelonephritis: (8) Infection due to ESBL-producing Escherichia coli: (9) E coli bacteremia: Plan Sepsis, septic shock -ESBL E. coli bacteremia, UTI, pyelonephritis -Source likely pyelonephritis left kidney -Also concerns for aspiration pneumonia, given CT scan findings below, hiatal hernia - CT/[place] [id number] IMPRESSION: 1. Suspected pyelonephritis LEFT kidney with delayed emptying described above. 2. Prior cholecystectomy. 3. Large esophageal hernia with partial intrathoracic stomach. 4. Patchy mild perihilar infiltrates. Recommend correlation for pneumonitis. Plan -Moved to ICU - Continue Levophed maintain MAP in 65 -Albumin therapy -Vancomycin -Meropenem -Blood cultures -Monitor respiratory status closely - aspiration precautions, speech therapy eval Acute kidney injury -Secondary to sepsis -IV fluids Anemia, thrombocytopenia -Likely related to sepsis, septic shock -Monitor closely -Protonix, Carafate TIA - Symptom onset was about 2 PM - NIH stroke scale admission was 0 - Reported word finding difficulty, confusion - Currently alert oriented x 3, following all commands, no focal neurologic deficits, no dizziness - Head CT no acute findings - Plan -Aspirin, statin - Telemetry monitoring - Cardiac echo - CT head and neck no acute findings - IV fluids - Full code - Lovenox for DVT prophylaxis Protonix, Carafate PDMP PDMP Reviewed: Not Reviewed Attestations 2 Medical Necessity Statement*: Patient requires hospitalization for septic shock, E. coli bacteremia, ESBL, UTI, pyelonephritis, TIA, Coding Level of Care Code Critical Care >/= 30 minutes Critical care time (in minutes): 40 The high probability of a clinically significant, sudden or life threatening deterioration, as referenced in this documentation, required my full and direct attention, intervention and personal management. The critical care time shown is in addition to time spent performing any reported separately billable procedures and includes the following: [x] Data and vital sign review and interpretation [x ] Patient assessment, examination and intervention [x] Medication orders and management [x] Patient/Family updates as able [x] Care Coordination and Documentation. Diagnoses Brain TIA G45.9 Sepsis A41.9 Septic shock A41.9; R65.21 Anemia D64.[address] (acute kidney injury) N17.9 Pyelonephritis N12 Infection due to ESBL-producing Escherichia coli A49.8; Z16.12 E coli bacteremia R78.81; B96.20
[2024-11-05] VITALS (33 sets, daily range): BP systolic 123–152; BP diastolic 68–93; PULSE 99–126; RESP 18–31; TEMP 36.7–38.2; O2SAT 93–97
--- NOTE | 2024-11-05 02:51 | PC.NURSE ---
notified of lovenox held due to plt count 87, drop in Hemoglobin, and hematocrit. No bleeding noted, patient on carafate and protonix. Aware of being held no orders to give dose at this time.
[2024-11-05] MEDS: pantoprazole 40 mg SDV IVP ×2 (03:35→16:10)
[2024-11-05 03:51] LABS: Basophils % 0.3 %; Hematocrit 25.1 % (36-47); Lymphocytes # 0.6 10^3/uL (0.8-4.8); Lymphocytes % 10.4 %; Mean Corpuscular HGB Conc 31.1 g/dL (30-55); Mean Corpuscular Hemoglobin 25.2 pg (27-33); Mean Corpuscular Volume 81.2 fl (85-98); Mean Platelet Volume 10.5 fL (7.4-10.4); Monocytes # 0.4 10^3/uL (0.2-0.9); Monocytes % 6.3 %; Neutrophils # 4.92 10^3/uL (1.8-7.7); Neutrophils % 82.2 %; Nucleated Red Blood Cells % 0 %; Platelet Count 88 10^3/cmm (157-399); Red Blood Count 3.09 10^6/uL (3.85-5.65); Red Cell Distribution Width 15.6 % (12.1-15.1); White Blood Count 5.99 10^3/uL (3.29-11.43)
[2024-11-05 04:11] LABS: Alanine Aminotransferase 11 U/L (0-33); Albumin Level 3.2 g/dL (3.5-5.2); Alkaline Phosphatase 33 U/L (35-105); Anion Gap 13.8 (5-19); Aspartate Amino Transferase 20 U/L (0-32); Blood Urea Nitrogen 12 mg/dL (8-23); Calcium 8.5 mg/dL (8.5-10.5); Carbon Dioxide 18 mmol/L (22-29); Chloride 109 mmol/L (98-107); Creatinine Clr Calc Pharmacy 41.6748; Globulin 2.6 g/dL (1.3-4.6); Glucose 112 mg/dL (65-115); Magnesium 1.9 mg/dL (1.7-2.3); Osmolality Calculated 285 mOsm/kg (285-295); Phosphorus 2.3 mg/dL (2.5-4.5); Potassium 3.8 mmol/L (3.5-5.1); Sodium 137 mmol/L (136-145); Total Bilirubin 0.7 mg/dL (0.15-1.2); Total Protein 5.8 g/dL (6.6-8.7)
[2024-11-05 04:18] LABS: C Reactive Protein 190.7 mg/L (0.0-4.9)
[2024-11-05 04:19] LABS: Procalcitonin 15.63 ng/mL (0-0.5)
[2024-11-05 04:23] LABS: NT Pro B Type Natriuretic Pept 8815 pg/mL (0-450)
[2024-11-05] MEDS: sucralfate 1 gm/10 mL Oral Liq UDC PO ×2 (05:43→17:54)
[2024-11-05 08:36] LABS: Creatine Phosphokinase 215 U/L (26-192); Lactate Dehydrogenase 136 U/L (135-214)
[2024-11-05] MEDS: meropenem 1,000 mg SDV 1000 MG IVP ×2 (09:28→20:13)
[2024-11-05] MEDS: vancomycin 1,250 MG/250 ML PIGGYBACK 167 MG IV (09:29)
[2024-11-05] MEDS: PARoxetine 20 mg Tablet 40 MG PO (09:29)
[2024-11-05] MEDS: gemfibrozil 600 mg Tablet PO ×2 (09:32→17:54)
[2024-11-05] MEDS: aspirin 81 mg EC Tablet PO (09:32)
[2024-11-05] MEDS: OLANZapine 5 mg TABLET 10 MG PO (09:32)
[2024-11-05] MEDS: metoprolol tartrate 25 mg Tablet PO ×2 (09:46→20:09)
[2024-11-05 12:09] LABS: Basophils % 0.5 %; Hematocrit 28.7 % (36-47); Lymphocytes # 0.7 10^3/uL (0.8-4.8); Lymphocytes % 10.9 %; Mean Corpuscular HGB Conc 30.7 g/dL (30-55); Mean Corpuscular Hemoglobin 25.4 pg (27-33); Mean Corpuscular Volume 82.7 fl (85-98); Mean Platelet Volume 10.4 fL (7.4-10.4); Monocytes # 0.5 10^3/uL (0.2-0.9); Monocytes % 7.9 %; Neutrophils # 4.76 10^3/uL (1.8-7.7); Nucleated Red Blood Cells % 0 %; Platelet Count 93 10^3/cmm (157-399); Red Blood Count 3.47 10^6/uL (3.85-5.65); Red Cell Distribution Width 15.8 % (12.1-15.1); White Blood Count 5.95 10^3/uL (3.29-11.43)
--- NOTE | 2024-11-05 12:48 | P.PN_ITS ---
Subjective 2 Subjective: Patient was seen this morning, she is alert oriented x 3, following all commands, daughters at bedside, has a low-grade fever this morning, tachycardic, no facial droop, no slurring of words, no focal weakness, does report fatigue, malaise Vitals/I&O/Wt Last Vital Signs Temp 98.9 F 11/05/24 12:30 Pulse 108 H 11/05/24 12:30 Resp 31 H 11/05/24 12:30 BP 138/83 11/05/24 12:30 Pulse Ox 94 11/05/24 12:30 O2 Del Method Nasal Cannula 11/05/24 12:30 O2 Flow Rate 1 11/05/24 12:30 FiO2 3 11/04/24 22:00 11/04/24 11/05/24 11/05/24 22:59 06:59 14:59 Intake Total 259.833 / 1919.833 100 / 2019.833 540 / 540 Output Total 1900 / 2200 650 / 2850 Balance -1640.167 / -280.167 -550 / -830.167 540 / 540 Weight last 48 hrs Weight 89 kg Weight 89.5 kg Physical Exam 2 Const: COMMON NORMALS: no acute distress and patient oriented x3 Resp: COMMON NORMALS: normal respiratory effort, No retractions and No use of accessory muscles AUSCULTATION: crackles Cardio: COMMON NORMALS: regular rhythm, S1 normal heart sound present and S2 normal heart sound present RATE: tachycardic RHYTHM: regular rhythm H EART SOUNDS: S1 normal heart sound present and S2 normal heart sound present GI: COMMON NORMALS: Normal to inspection, nondistended, normoactive bowel sounds present and non-tender Extremity: NARRATIVE EXTREMITY EXAM: 1+ edema, anasarca Neuro: COMMON NORMALS: patient oriented x3 Psych: COMMON NORMALS: mental status grossly normal Urinary Catheter Management: Schmitz: Cath Placed During This Visit: yes Reason for Continuing Indwelling Catheter: Accurate Measurement of Urinary Output in Critically Ill Patients Urinary Catheter Date of Insertion: 11/03/24 Urinary Catheter Time of Insertion: 15:00 Data 11/05/24 12:01 11/05/24 03:37 Micro: Microbiology 11/03/24 15:40 Urine Culture - Final Urine Catheterized 11/05/24 03:37 Blood Culture - Preliminary Blood SPECIMEN COLLECTED 11/05/24 03:30 Blood Culture - Preliminary Blood SPECIMEN COLLECTED 11/02/24 16:23 Urine Culture - Preliminary Urine,Clean Catch Gram Negative Rods Gram Negative Rods#2 11/03/24 08:52 Blood Culture - Preliminary Blood NEGATIVE TO DATE 11/03/24 08:58 Blood Culture - Preliminary Blood Escherichia coli A&P Assessment and plan (1) Brain TIA: (2) Sepsis: (3) Septic shock: (4) Anemia: (5) Thrombocytopenia: (6) CT (acute kidney injury): (7) Pyelonephritis: (8) Infection due to ESBL-producing Escherichia coli: (9) E coli bacteremia: Plan Sepsis, septic shock -ESBL E. coli bacteremia, UTI, pyelonephritis -Source likely pyelonephritis left kidney -Also concerns for aspiration pneumonia, given CT scan findings below, hiatal hernia - [place] [id number] IMPRESSION: 1. Suspected pyelonephritis LEFT kidney with delayed emptying described above. 2. Prior cholecystectomy. 3. Large esophageal hernia with partial intrathoracic stomach. 4. Patchy mild perihilar infiltrates. Recommend correlation for pneumonitis. Plan - Will monitor in ICU will consider moving to med floors as patient is off pressors - Off Levophed - Albumin discontinued -Vancomycin -Meropenem - Repeat blood cultures ordered this morning -Monitor respiratory status closely - aspiration precautions, speech therapy eval Acute kidney injury, resolving -Secondary to sepsis Fluid overload, anasarca, 1+ pitting edema, crackles in lung zee - 1 dose IV Lasix Anemia, thrombocytopenia -Likely related to sepsis, septic shock -Monitor closely -Protonix, Carafate TIA - Symptom onset was about 2 PM - NIH stroke scale admission was 0 - Reported word finding difficulty, confusion - Currently alert oriented x 3, following all commands, no focal neurologic deficits, no dizziness - Head CT no acute findings - Plan -Aspirin, statin - Telemetry monitoring - Cardiac echo CONCLUSIONS Normal left ventricular size, systolic function and wall thickness, with no regional wall motion abnormalities. Left ventricular ejection fraction is estimated at 60 %. Grade II/IV diastolic dysfunction, moderately elevated filling pressures. Moderately increased left atrial size. Moderately thickened mitral valve. Moderate mitral annular calcification. No mitral valve stenosis. Mild mitral valve regurgitation. Moderate aortic valve calcification. No aortic valve stenosis. Trace to mild aortic valve regurgitation. Mild tricuspid valve regurgitation. There is no pericardial effusion. Right atrial pressure is around 5 mm of mercury. - CT head and neck no acute findings - IV fluids - Full code - Lovenox for DVT prophylaxis Protonix, Carafate Plan for today, follow repeat blood cultures, repeat CBC this afternoon, 1 dose IV Lasix, monitor urine output, monitor clinical status, tachycardia possibly beta-ezra withdrawal resume home beta-ezra, PDMP PDMP Reviewed: Not Reviewed Attestations 2 Medical Necessity Statement*: Patient requires hospitalization for ESBL E. coli bacteremia, with UTI, with pyelonephritis, fluid overload Diagnoses Brain TIA G45.9 Sepsis A41.9 Septic shock A41.9; R65.21 Anemia D64.[address] (acute kidney injury) N17.9 Pyelonephritis N12 Infection due to ESBL-producing Escherichia coli A49.8; Z16.12 E coli bacteremia R78.81; B96.20
[2024-11-05] MEDS: FUROsemide 10 mg/mL SDV 2mL 20 MG IVP (13:28)
--- NOTE | 2024-11-05 18:47 | PC.NURSE ---
Shift summary: Pt stated she is feeling better. She has sat up in chair since 1130. She is afebrile. Sinus tach noted on monitor. Her temp this am was 100.7 F. It has been WNL since. Pain not reported. She worked with PT today. She has a decent appetite , eating at least half her meals. Lasi admin today. 1450ml of Pale yellow urine noted. She had a large BM today. Family states she was confused this evening. Pt answered all questions appropriately for this nurse. Family then stated she forgot the name of the ubaldo. Pupils equal. Litigation Associate equal No deficits noted by this nurse. PICC patent with good blood return.
[2024-11-05] MEDS: trazodone 100 mg Tablet 150 MG PO (20:09)
[2024-11-06] VITALS (25 sets, daily range): BP systolic 97–158; BP diastolic 60–88; PULSE 69–103; RESP 16–29; TEMP 36.6–37.7; O2SAT 90–96
[2024-11-06] MEDS: pantoprazole 40 mg SDV IVP ×2 (04:32→17:06)
[2024-11-06 05:04] LABS: Basophils % 0.4 %; Hematocrit 27.8 % (36-47); Lymphocytes # 0.7 10^3/uL (0.8-4.8); Lymphocytes % 14.8 %; Mean Corpuscular HGB Conc 30.9 g/dL (30-55); Mean Corpuscular Volume 80.8 fl (85-98); Mean Platelet Volume 12.3 fL (7.4-10.4); Monocytes # 0.7 10^3/uL (0.2-0.9); Monocytes % 13.6 %; Neutrophils # 3.38 10^3/uL (1.8-7.7); Neutrophils % 70.6 %; Nucleated Red Blood Cells % 0 %; Platelet Count 98 10^3/cmm (157-399); Red Blood Count 3.44 10^6/uL (3.85-5.65); Red Cell Distribution Width 15.7 % (12.1-15.1); White Blood Count 4.79 10^3/uL (3.29-11.43)
[2024-11-06] MEDS: sucralfate 1 gm/10 mL Oral Liq UDC PO ×2 (05:23→17:06)
[2024-11-06 06:03] LABS: NT Pro B Type Natriuretic Pept 3063 pg/mL (0-450)
[2024-11-06 06:14] LABS: Alanine Aminotransferase 10 U/L (0-33); Albumin Level 3.1 g/dL (3.5-5.2); Alkaline Phosphatase 34 U/L (35-105); Anion Gap 15.6 (5-19); Aspartate Amino Transferase 14 U/L (0-32); Blood Urea Nitrogen 16 mg/dL (8-23); Calcium 8.6 mg/dL (8.5-10.5); Carbon Dioxide 21 mmol/L (22-29); Chloride 102 mmol/L (98-107); Creatinine Clr Calc Pharmacy 37.6269; Globulin 2.8 g/dL (1.3-4.6); Glucose 135 mg/dL (65-115); Magnesium 1.8 mg/dL (1.7-2.3); Osmolality Calculated 283 mOsm/kg (285-295); Phosphorus 2.4 mg/dL (2.5-4.5); Potassium 3.6 mmol/L (3.5-5.1); Sodium 135 mmol/L (136-145); Total Bilirubin 0.6 mg/dL (0.15-1.2); Total Protein 5.9 g/dL (6.6-8.7)
[2024-11-06] MEDS: aspirin 81 mg EC Tablet PO (08:52)
[2024-11-06] MEDS: metoprolol tartrate 25 mg Tablet PO ×2 (08:52→20:57)
[2024-11-06] MEDS: gemfibrozil 600 mg Tablet PO ×2 (08:53→17:05)
[2024-11-06] MEDS: OLANZapine 5 mg TABLET 10 MG PO (08:53)
[2024-11-06] MEDS: PARoxetine 20 mg Tablet 40 MG PO (08:53)
[2024-11-06] MEDS: vancomycin 1,250 MG/250 ML PIGGYBACK 167 MG IV (09:02)
[2024-11-06] MEDS: meropenem 1,000 mg SDV 1000 MG IVP ×2 (09:02→20:56)
[2024-11-06] MEDS: ipratropium-albuterol 3 mL Neb INHALATION ×3 (09:28→19:49)
--- NOTE | 2024-11-06 10:28 | P.PN_ITS ---
Subjective 2 Subjective: Patient was seen this morning, she is sitting up in a chair, alert oriented x 3, following commands, denies any focal weakness, no slurring words, no lightheadedness, no dizziness, Vitals/I&O/Wt Last Vital Signs Temp 99.8 F H 11/06/24 05:24 Pulse 96 11/06/24 09:28 Resp 20 H 11/06/24 09:28 BP 129/78 11/06/24 06:00 Pulse Ox 92 11/06/24 09:28 O2 Del Method Room Air 11/06/24 09:28 O2 Flow Rate 2 11/06/24 03:19 FiO2 3 11/04/24 22:00 11/05/24 11/06/24 11/06/24 22:59 06:59 14:59 Intake Total 300 / 1090 250 / 1340 Output Total 1450 / 2700 1750 / 4450 Balance -1150 / -1610 -1500 / -3110 Weight last 48 hrs Weight 85.82 kg Weight 89 kg Physical Exam 2 Const: COMMON NORMALS: no acute distress and patient oriented x3 Resp: COMMON NORMALS: normal respiratory effort, No retractions, No use of accessory muscles and clear to auscultation bilaterally AUSCULTATION: clear to auscultation bilaterally Cardio: COMMON NORMALS: regular rate, regular rhythm, S1 normal heart sound present and S2 normal heart sound present RATE: regular rate RHYTHM: r egular rhythm HEART SOUNDS: S1 normal heart sound present and S2 normal heart sound present GI: COMMON NORMALS: Normal to inspection, nondistended, normoactive bowel sounds present and non-tender Extremity: COMMON NORMALS: no pedal edema Neuro: COMMON NORMALS: patient oriented x3 Psych: COMMON NORMALS: mental status grossly normal Urinary Catheter Management: Schmitz: Cath Placed During This Visit: yes Reason for Continuing Indwelling Catheter: Accurate Measurement of Urinary Output in Critically Ill Patients Urinary Catheter Date of Insertion: 11/03/24 Urinary Catheter Time of Insertion: 15:00 Data 11/06/24 04:28 11/06/24 05:21 Micro: Microbiology 11/05/24 03:37 Blood Culture - Preliminary Blood NEGATIVE TO DATE 11/05/24 03:30 Blood Culture - Preliminary Blood NEGATIVE TO DATE 11/03/24 08:52 Blood Culture - Preliminary Blood 11/03/24 08:58 Blood Culture - Preliminary Blood Escherichia coli 11/02/24 16:23 Urine Culture - Preliminary Urine,Clean Catch Escherichia coli esbl Gram Negative Rods#2 11/03/24 15:40 Urine Culture - Final Urine Catheterized A&P Assessment and plan (1) Brain TIA: (2) Sepsis: (3) Septic shock: (4) Anemia: (5) Thrombocytopenia: (6) CT (acute kidney injury): (7) Pyelonephritis: (8) Infection due to ESBL-producing Escherichia coli: (9) E coli bacteremia: Plan Sepsis, septic shock -ESBL E. coli bacteremia, UTI, pyelonephritis -Source likely pyelonephritis left kidney -Also concerns for aspiration pneumonia, given CT scan findings below, hiatal hernia - [place] [id number] IMPRESSION: 1. Suspected pyelonephritis LEFT kidney with delayed emptying described above. 2. Prior cholecystectomy. 3. Large esophageal hernia with partial intrathoracic stomach. 4. Patchy mild perihilar infiltrates. Recommend correlation for pneumonitis. Plan - Moved to medical floors - Off Levophed - Albumin discontinued -Vancomycin discontinued -Meropenem - Repeat blood cultures negative to date -Monitor respiratory status closely - aspiration precautions, speech therapy eval Acute kidney injury, resolving -Secondary to sepsis Fluid overload, anasarca, 1+ pitting edema, crackles in lung zee - Status post 1 dose IV Lasix, -4 L Anemia, thrombocytopenia -Likely related to sepsis, septic shock -Monitor closely -Protonix, Carafate TIA - Symptom onset was about 2 PM - NIH stroke scale admission was 0 - Reported word finding difficulty, confusion - Currently alert oriented x 3, following all commands, no focal neurologic deficits, no dizziness - Head CT no acute findings - Plan -Aspirin, statin - Telemetry monitoring - Cardiac echo CONCLUSIONS Normal left ventricular size, systolic function and wall thickness, with no regional wall motion abnormalities. Left ventricular ejection fraction is estimated at 60 %. Grade II/IV diastolic dysfunction, moderately elevated filling pressures. Moderately increased left atrial size. Moderately thickened mitral valve. Moderate mitral annular calcification. No mitral valve stenosis. Mild mitral valve regurgitation. Moderate aortic valve calcification. No aortic valve stenosis. Trace to mild aortic valve regurgitation. Mild tricuspid valve regurgitation. There is no pericardial effusion. Right atrial pressure is around 5 mm of mercury. - CT head and neck no acute findings - IV fluids - Full code - Lovenox for DVT prophylaxis Protonix, Carafate Plan for today, follow repeat blood cultures, continue IV meropenem moved to medical floors, PDMP PDMP Reviewed: Not Reviewed Attestations 2 Medical Necessity Statement*: Patient requires hospitalization for ESBL E. coli bacteremia, with pyelonephritis Diagnoses Brain TIA G45.9 Sepsis A41.9 Septic shock A41.9; R65.21 Anemia D64.[address] (acute kidney injury) N17.9 Pyelonephritis N12 Infection due to ESBL-producing Escherichia coli A49.8; Z16.12 E coli bacteremia R78.81; B96.20
--- NOTE | 2024-11-06 14:09 | PC.NURSE ---
Report given to Juan Manuel Morales via telephone for room 258.
--- NOTE | 2024-11-06 14:49 | PC.NURSE ---
Pt transferred to Room 258. Updates given to SN yL. All belongings with pt, including cell phone and conveyor line battery charger.
[2024-11-06] MEDS: trazodone 100 mg Tablet 150 MG PO (20:56)
[2024-11-06] MEDS: enoxaparin 40 mg/0.4 mL Syringe SUBCUT (20:56)
[2024-11-07] VITALS (15 sets, daily range): BP systolic 113–161; BP diastolic 63–94; PULSE 84–100; RESP 15–18; TEMP 36.4–37.6; O2SAT 92–95
[2024-11-07 04:02] LABS: Basophils % 0.8 %; Hematocrit 26.1 % (36-47); Lymphocytes # 0.7 10^3/uL (0.8-4.8); Lymphocytes % 20.2 %; Mean Corpuscular HGB Conc 31.4 g/dL (30-55); Mean Corpuscular Hemoglobin 25.2 pg (27-33); Mean Corpuscular Volume 80.1 fl (85-98); Mean Platelet Volume 10.7 fL (7.4-10.4); Monocytes # 0.7 10^3/uL (0.2-0.9); Monocytes % 18.3 %; Neutrophils # 2.14 10^3/uL (1.8-7.7); Neutrophils % 59.3 %; Nucleated Red Blood Cells % 0 %; Platelet Count 101 10^3/cmm (157-399); Red Blood Count 3.26 10^6/uL (3.85-5.65); Red Cell Distribution Width 15.6 % (12.1-15.1); White Blood Count 3.61 10^3/uL (3.29-11.43)
[2024-11-07 04:33] LABS: NT Pro B Type Natriuretic Pept 923 pg/mL (0-450); Procalcitonin 4.18 ng/mL (0-0.5)
[2024-11-07 04:44] LABS: Alanine Aminotransferase 8 U/L (0-33); Albumin Level 3.1 g/dL (3.5-5.2); Alkaline Phosphatase 35 U/L (35-105); Aspartate Amino Transferase 12 U/L (0-32); Blood Urea Nitrogen 20 mg/dL (8-23); C Reactive Protein 79.9 mg/L (0.0-4.9); Calcium 8.4 mg/dL (8.5-10.5); Carbon Dioxide 21 mmol/L (22-29); Chloride 106 mmol/L (98-107); Creatinine Clr Calc Pharmacy 30.5718; Glucose 149 mg/dL (65-115); Magnesium 1.9 mg/dL (1.7-2.3); Osmolality Calculated 293 mOsm/kg (285-295); Phosphorus 2.9 mg/dL (2.5-4.5); Sodium 139 mmol/L (136-145); Total Bilirubin 0.4 mg/dL (0.15-1.2); Total Protein 5.1 g/dL (6.6-8.7)
[2024-11-07] MEDS: sucralfate 1 gm/10 mL Oral Liq UDC PO ×2 (05:46→18:28)
[2024-11-07] MEDS: pantoprazole 40 mg SDV IVP ×2 (05:46→18:28)
[2024-11-07] MEDS: ipratropium-albuterol 3 mL Neb INHALATION ×4 (08:05→20:06)
--- NOTE | 2024-11-07 08:45 | USR_ITS ---
PROCEDURE INFORMATION: Exam: US Retroperitoneal, Complete, Kidneys and Bladder Exam date and time: 11/07/2024 10:04 AM Age: 79 years old Clinical indication: Abnormal findings; Abnormal radiologic finding of the abdomen; Radiologic exam and body structure: CT kidneys; Additional info: Evaluate for emphysematous pyelnophritis TECHNIQUE: Imaging protocol: Real-time ultrasound of the retroperitoneum with image documentation. Complete exam focused on the bilateral kidneys and urinary bladder. COMPARISON: US renal BI* [id number] 11/03/2024 1:57 PM FINDINGS: Right kidney: Normal. No stones. No hydronephrosis. Small renal cyst. Left kidney: Mild pelviectasis versus extrarenal pelvis with suggestion of slight proximal ureterectasis. No stones. Small renal cyst. Urinary bladder: Unremarkable. US/US renal BI* [id number] IMPRESSION: Mild pelviectasis versus extrarenal pelvis in the left kidney with suggestion of proximal ureterectasis. No sonographic evidence for gas in the kidneys.
[2024-11-07] MEDS: meropenem 1,000 mg SDV 1000 MG IVP ×2 (09:52→20:26)
[2024-11-07] MEDS: sodium chloride 0.9% 1,000 ML 75 ML IV (09:52)
[2024-11-07] MEDS: PARoxetine 20 mg Tablet 40 MG PO (09:53)
[2024-11-07] MEDS: aspirin 81 mg EC Tablet PO (09:53)
[2024-11-07] MEDS: OLANZapine 5 mg TABLET 10 MG PO (09:53)
[2024-11-07] MEDS: gemfibrozil 600 mg Tablet PO ×2 (09:53→18:28)
[2024-11-07] MEDS: metoprolol tartrate 25 mg Tablet PO ×2 (10:13→20:26)
--- NOTE | 2024-11-07 14:04 | P.PN_ITS ---
Subjective 2 Subjective: Patient was seen this morning, she is alert oriented x 3, following all commands, denies any fevers, chills, cough, no lightheadedness, dizziness, no flank pain Vitals/I&O/Wt Last Vital Signs Temp 97.6 F 11/07/24 11:22 Pulse 84 11/07/24 11:25 Resp 18 11/07/24 11:22 BP 134/81 11/07/24 11:22 Pulse Ox 93 11/07/24 11:22 O2 Del Method Room Air 11/07/24 11:22 O2 Flow Rate 2 11/06/24 03:19 FiO2 3 11/04/24 22:00 11/06/24 11/07/24 11/07/24 22:59 06:59 14:59 Intake Total 240 / 1040 480 / 480 Output Total 750 / 1525 250 / 1775 Balance -510 / -485 -250 / -735 480 / 480 Weight last 48 hrs Weight 88.451 kg Weight 85.82 kg Physical Exam 2 Const: COMMON NORMALS: no acute distress and patient oriented x3 Resp: COMMON NORMALS: normal respiratory effort, No retractions, No use of accessory muscles and clear to auscultation bilaterally AUSCULTATION: clear to auscultation bilaterally Cardio: COMMON NORMALS: regular rate, regular rhythm, S1 normal heart sound present and S2 normal heart sound present RATE: regular rate RHYTHM: r egular rhythm HEART SOUNDS: S1 normal heart sound present and S2 normal heart sound present GI: COMMON NORMALS: Normal to inspection, nondistended, normoactive bowel sounds present and non-tender Extremity: COMMON NORMALS: no pedal edema Neuro: COMMON NORMALS: patient oriented x3 Psych: COMMON NORMALS: mental status grossly normal Urinary Catheter Management: Schmitz: Cath Placed During This Visit: yes Reason for Continuing Indwelling Catheter: Acute Urinary Retention or Obstruction Urinary Catheter Date of Insertion: 11/03/24 Urinary Catheter Time of Insertion: 15:00 Data 11/07/24 03:40 11/07/24 03:40 Micro: Microbiology 11/03/24 08:52 Blood Culture - Preliminary Blood Escherichia coli esbl 11/03/24 08:58 Blood Culture - Preliminary Blood Escherichia coli esbl 11/02/24 16:23 Urine Culture - Final Urine,Clean Catch Escherichia coli esbl Escherichia coli esbl#2 A&P Assessment and plan (1) Brain TIA: (2) Sepsis: (3) Septic shock: (4) Anemia: (5) Thrombocytopenia: (6) CT (acute kidney injury): (7) Pyelonephritis: (8) Infection due to ESBL-producing Escherichia coli: (9) E coli bacteremia: Plan Sepsis, septic shock -ESBL E. coli bacteremia, UTI, pyelonephritis -Source likely pyelonephritis left kidney -Also concerns for aspiration pneumonia, given CT scan findings below, hiatal hernia - [place] [id number] IMPRESSION: 1. Suspected pyelonephritis LEFT kidney with delayed emptying described above. 2. Prior cholecystectomy. 3. Large esophageal hernia with partial intrathoracic stomach. 4. Patchy mild perihilar infiltrates. Recommend correlation for pneumonitis. Plan - Moved to medical floors - Off Levophed - Albumin discontinued -Vancomycin discontinued -Meropenem -Will need ertapenem 1 g IV every 24 hours for a total of 2 weeks starting for 2023 - Repeat blood cultures negative 48 hours -Will likely need PICC line exchanged, and his initial PICC line was placed when patient was in septic shock and had gram-negative bacteremia -Monitor respiratory status closely - aspiration precautions, speech therapy eval Acute kidney injury, 1.6, likely secondary to Lasix, IV fluids - Repeat renal ultrasound Fluid overload, anasarca, 1+ pitting edema, crackles in lung zee - Hold Lasix Anemia, thrombocytopenia -Likely related to sepsis, septic shock -Monitor closely -Protonix, Carafate TIA - Symptom onset was about 2 PM - NIH stroke scale admission was 0 - Reported word finding difficulty, confusion - Currently alert oriented x 3, following all commands, no focal neurologic deficits, no dizziness - Head CT no acute findings - Plan -Aspirin, statin - Telemetry monitoring - Cardiac echo CONCLUSIONS Normal left ventricular size, systolic function and wall thickness, with no regional wall motion abnormalities. Left ventricular ejection fraction is estimated at 60 %. Grade II/IV diastolic dysfunction, moderately elevated filling pressures. Moderately increased left atrial size. Moderately thickened mitral valve. Moderate mitral annular calcification. No mitral valve stenosis. Mild mitral valve regurgitation. Moderate aortic valve calcification. No aortic valve stenosis. Trace to mild aortic valve regurgitation. Mild tricuspid valve regurgitation. There is no pericardial effusion. Right atrial pressure is around 5 mm of mercury. - CT head and neck no acute findings - IV fluids - Full code - Lovenox for DVT prophylaxis Protonix, Carafate Plan for today, continue meropenem PDMP PDMP Reviewed: Not Reviewed Attestations 2 Medical Necessity Statement*: Patient requires hospitalization for ESBL E. coli bacteremia Diagnoses Brain TIA G45.9 Sepsis A41.9 Septic shock A41.9; R65.21 Anemia D64.[address] (acute kidney injury) N17.9 Pyelonephritis N12 Infection due to ESBL-producing Escherichia coli A49.8; Z16.12 E coli bacteremia R78.81; B96.20
[2024-11-07 18:59] LABS: Anion Gap 15.1 (5-19); Blood Urea Nitrogen 19 mg/dL (8-23); Calcium 8.8 mg/dL (8.5-10.5); Carbon Dioxide 21 mmol/L (22-29); Chloride 104 mmol/L (98-107); Creatinine Clr Calc Pharmacy 35.4983; Glucose 216 mg/dL (65-115); Osmolality Calculated 291 mOsm/kg (285-295); Potassium 4.1 mmol/L (3.5-5.1); Sodium 136 mmol/L (136-145)
[2024-11-07] MEDS: enoxaparin 40 mg/0.4 mL Syringe SUBCUT (20:26)
[2024-11-07] MEDS: trazodone 100 mg Tablet 150 MG PO (20:26)
[2024-11-08] VITALS (12 sets, daily range): BP systolic 114–130; BP diastolic 62–79; PULSE 68–97; RESP 12–17; TEMP 36.6–37.4; O2SAT 91–97; BMI 34.5
[2024-11-08] MEDS: sodium chloride 0.9% 1,000 ML 50 ML IV (00:46)
[2024-11-08 04:42] LABS: Basophils % 0.4 %; Lymphocytes # 1.2 10^3/uL (0.8-4.8); Lymphocytes % 24.6 %; Mean Corpuscular HGB Conc 30.8 g/dL (30-55); Mean Corpuscular Volume 81.3 fl (85-98); Mean Platelet Volume 11.1 fL (7.4-10.4); Monocytes # 0.8 10^3/uL (0.2-0.9); Monocytes % 16.5 %; Neutrophils # 2.66 10^3/uL (1.8-7.7); Neutrophils % 55.4 %; Nucleated Red Blood Cells % 0 %; Platelet Count 123 10^3/cmm (157-399); Red Cell Distribution Width 15.6 % (12.1-15.1)
[2024-11-08] MEDS: sucralfate 1 gm/10 mL Oral Liq UDC PO ×2 (05:07→17:49)
[2024-11-08] MEDS: pantoprazole 40 mg SDV IVP ×2 (05:07→17:49)
[2024-11-08 05:09] LABS: Alanine Aminotransferase 7 U/L (0-33); Alkaline Phosphatase 32 U/L (35-105); Aspartate Amino Transferase 11 U/L (0-32); Blood Urea Nitrogen 17 mg/dL (8-23); C Reactive Protein 64.6 mg/L (0.0-4.9); Calcium 8.4 mg/dL (8.5-10.5); Carbon Dioxide 21 mmol/L (22-29); Chloride 106 mmol/L (98-107); Creatinine Clr Calc Pharmacy 41.4147; Globulin 2.3 g/dL (1.3-4.6); Glucose 125 mg/dL (65-115); Osmolality Calculated 289 mOsm/kg (285-295); Phosphorus 3.1 mg/dL (2.5-4.5); Sodium 138 mmol/L (136-145); Total Bilirubin 0.3 mg/dL (0.15-1.2); Total Protein 5.3 g/dL (6.6-8.7)
[2024-11-08 05:13] LABS: NT Pro B Type Natriuretic Pept 794 pg/mL (0-450); Procalcitonin 1.94 ng/mL (0-0.5)
[2024-11-08 05:26] LABS: Slide Review Slide Review Perform
[2024-11-08] MEDS: ipratropium-albuterol 3 mL Neb INHALATION ×2 (07:32→11:19)
[2024-11-08] MEDS: meropenem 1,000 mg SDV 1000 MG IVP ×2 (10:57→20:39)
[2024-11-08] MEDS: PARoxetine 20 mg Tablet 40 MG PO (10:58)
[2024-11-08] MEDS: aspirin 81 mg EC Tablet PO (10:58)
[2024-11-08] MEDS: metoprolol tartrate 25 mg Tablet PO ×2 (10:58→20:39)
[2024-11-08] MEDS: OLANZapine 5 mg TABLET 10 MG PO (10:58)
[2024-11-08] MEDS: gemfibrozil 600 mg Tablet PO ×2 (10:58→17:49)
--- NOTE | 2024-11-08 11:43 | PC.SOCIAL ---
IMM Update pg 2 of IMM Updated and reviewed w/ patient. Copy provided and copy dated, initialed and placed in chart.
[2024-11-08 14:05] LABS: Vitamin B12 736 pg/mL (232-1245)
--- NOTE | 2024-11-08 14:25 | PICC.NOTE ---
Spoke to Dr. Cuevas regarding orders to exchange/replace current PICC line. Orders received to hold off on replacing at this time and to keep current PICC in place.
--- NOTE | 2024-11-08 15:17 | P.PN_ITS ---
Subjective 2 Subjective: Hospital course, labs appreciated. Patient seen sitting up in recliner. States she is feeling a lot better. Did sleep well last night. Denies any nausea, vomiting, headache. Vitals/I&O/Wt Last Vital Signs Temp 98.0 F 11/08/24 11:18 Pulse 70 11/08/24 11:24 Resp 17 11/08/24 11:18 BP 115/66 11/08/24 11:18 Pulse Ox 95 11/08/24 11:18 O2 Del Method Room Air 11/08/24 11:18 O2 Flow Rate 2 11/06/24 03:19 FiO2 3 11/04/24 22:00 11/08/24 11/08/24 11/08/24 06:59 14:59 22:59 Intake Total 1038.333 / 2405.833 600 / 600 Output Total 800 / 800 Balance 1038.333 / 1205.833 -200 / -200 Weight last 48 hrs Weight 88.451 kg Weight 88.451 kg Physical Exam 2 Const: COMMON NORMALS: no acute distress and patient oriented x3 O RIENTATION/CONSCIOUSNESS: Yes awake, Yes oriented to person and Yes oriented to place HENMT: COMMON NORMALS: normocephalic HEAD & SCALP: normocephalic Eye: COMMON NORMALS: Equal, round and reactive pupils present PUPIL: Yes Equal, round and reactive pupils present Neck/C-Spine: COMMON NORMALS: no JVD Lymph: LYMPHATIC: no lymphadenopathy noted Resp: COMMON NORMALS: normal respiratory effort, No retractions, No use of accessory muscles and clear to auscultation bilaterally AUSCULTATION: clear to auscultation bilaterally, crackles and wheezes Cardio: COMMON NORMALS: no JVD, regular rate, regular rhythm, S1 normal heart sound present and S2 normal heart sound present RATE: regular rate and tachycardic RHYTHM: regular rhythm HEART SOUNDS: S1 normal heart sound present and S2 normal heart sound present GI: COMMON NORMALS: Normal to inspection, nondistended, normoactive bowel sounds present, Soft to palpation and non-tender PALPATION: Yes Soft to palpation Extremity: COMMON NORMALS: no pedal edema NARRATIVE EXTREMITY EXAM: 1+ edema, anasarca Neuro: COMMON NORMALS: patient oriented x3, CN's II-XII intact bilaterally, moves all extremities and no focal motor deficits SENSORIUM/ORIENTATION: Yes oriented to person and Yes oriented to place Psych: COMMON NORMALS: mental status grossly normal Skin: COMMON NORMALS: no rashes or lesions noted GENERAL SKIN EXAM: no rashes or lesions noted Urinary Catheter Management: Schmitz: Cath Placed During This Visit: yes, but has since been removed by the nurse Reason for Continuing Indwelling Catheter: Decision to DC Catheter Urinary Catheter Date of Insertion: 11/03/24 Urinary Catheter Time of Insertion: 15:00 Date Urinary Catheter Removed: 11/07/24 Time Urinary Catheter Discontinued: 14:40 Data 11/08/24 03:52 11/08/24 03:52 Micro: Microbiology 11/07/24 16:03 Occult Blood (FIT) - Final Stool Routine Collection 11/03/24 08:52 Blood Culture - Final Blood Escherichia coli esbl 11/03/24 08:58 Blood Culture - Final Blood Escherichia coli esbl A&P Assessment and plan (1) Sepsis: (2) E coli bacteremia: (3) Infection due to ESBL-producing Escherichia coli: (4) Pyelonephritis: (5) Brain TIA: (6) Anemia: (7) Thrombocytopenia: (8) CT (acute kidney injury): (9) Septic shock: Plan Severe sepsis/septic shock: Present on admission. Resolved. Keep mean artery pressure 65. ESBL bacteremia: Most likely in setting of UTI and pyelonephritis. Appreciate CT abdomen pelvis. No concern for obstructive nephropathy. Follow-up repeat blood culture from 11/07. For now continue with IV meropenem as per creatinine clearance. Plan to finish a 2-week of IV antibiotic course from last positive blood culture. Will switch to oral ertapenem on discharge. Appreciate sensitivities. Continue with PICC line for now. If repeat blood culture also become positive will plan to discontinue PICC line and consult ID. Acute kidney injury: Most likely in setting of severe sepsis. Baseline creatinine not available. Creatinine couple of months ago 1.3. Medical reconciliation done for nephrotoxic drugs. Hold off on home dose of Lasix, losartan, meloxicam for now. Hold off on ibuprofen. Creatinine down to 1.2. Monitor electrolytes. Anemia/thrombocytopenia: Baseline hemoglobin from couple of months ago around 10.4. Currently has been stable around 8. Stool for occult blood negative. Most likely in setting of severe sepsis. Continue with Protonix twice daily. Can discontinue Carafate. Platelet count down to 123. Seems to be improving. Continue to monitor platelet count daily. TIA - Symptom onset was about 2 PM - NIH stroke scale admission was 0 - Reported word finding difficulty, confusion - Currently alert oriented x 3, following all commands, no focal neurologic deficits, no dizziness - Head CT no acute findings - Plan -Aspirin, statin - Telemetry monitoring Appreciate cardiac echo - Full code - Lovenox for DVT prophylaxis. Protonix will be sufficient for PUD prophylaxis Regular diet PDMP PDMP Reviewed: Not Reviewed Attestations 2 Medical Necessity Statement*: Hospitalization for management of ESBL E. coli bacteremia in setting of pyelonephritis while repeat blood cultures are awaited, severe sepsis, CT on CKD, anemia and thrombocytopenia in setting of sepsis in setting of sepsis Diagnoses Sepsis A41.9 E coli bacteremia R78.81; B96.20 Infection due to ESBL-producing Escherichia coli A49.8; Z16.12 Pyelonephritis N12 Brain TIA G45.9 Anemia D64.[address] (acute kidney injury) N17.9 Septic shock A41.9; R65.21
[2024-11-08] MEDS: trazodone 100 mg Tablet 150 MG PO (20:39)
[2024-11-08] MEDS: enoxaparin 40 mg/0.4 mL Syringe SUBCUT (20:39)
[2024-11-09] VITALS (7 sets, daily range): BP systolic 110–123; BP diastolic 58–75; PULSE 84–90; RESP 13–18; TEMP 36.4–36.9; O2SAT 92–96; BMI 34.5
[2024-11-09] MEDS: sucralfate 1 gm/10 mL Oral Liq UDC PO (04:51)
[2024-11-09] MEDS: pantoprazole 40 mg SDV IVP (04:51)
[2024-11-09 05:17] LABS: Basophils % 0.4 %; Hematocrit 25.7 % (36-47); Lymphocytes % 21.5 %; Mean Corpuscular HGB Conc 30.4 g/dL (30-55); Mean Corpuscular Hemoglobin 25.7 pg (27-33); Mean Corpuscular Volume 84.5 fl (85-98); Mean Platelet Volume 10.8 fL (7.4-10.4); Monocytes # 0.6 10^3/uL (0.2-0.9); Monocytes % 11.6 %; Neutrophils # 3.03 10^3/uL (1.8-7.7); Neutrophils % 62.8 %; Nucleated Red Blood Cells % 0 %; Platelet Count 158 10^3/cmm (157-399); Red Blood Count 3.04 10^6/uL (3.85-5.65); Red Cell Distribution Width 15.8 % (12.1-15.1); White Blood Count 4.83 10^3/uL (3.29-11.43)
[2024-11-09 05:37] LABS: Alanine Aminotransferase 6 U/L (0-33); Alkaline Phosphatase 31 U/L (35-105); Anion Gap 14.9 (5-19); Aspartate Amino Transferase 9 U/L (0-32); Blood Urea Nitrogen 16 mg/dL (8-23); Calcium 8.6 mg/dL (8.5-10.5); Carbon Dioxide 22 mmol/L (22-29); Chloride 107 mmol/L (98-107); Creatinine Clr Calc Pharmacy 41.4147; Globulin 2.5 g/dL (1.3-4.6); Glucose 122 mg/dL (65-115); Osmolality Calculated 292 mOsm/kg (285-295); Potassium 3.9 mmol/L (3.5-5.1); Sodium 140 mmol/L (136-145); Total Bilirubin 0.2 mg/dL (0.15-1.2); Total Protein 5.5 g/dL (6.6-8.7)
[2024-11-09 05:51] LABS: Slide Review Slide Review Perform
[2024-11-09] MEDS: gemfibrozil 600 mg Tablet PO (09:00)
[2024-11-09] MEDS: meropenem 1,000 mg SDV 1000 MG IVP (09:00)
[2024-11-09] MEDS: aspirin 81 mg EC Tablet PO (09:01)
[2024-11-09] MEDS: PARoxetine 20 mg Tablet 40 MG PO (09:01)
[2024-11-09] MEDS: metoprolol tartrate 25 mg Tablet PO (09:01)
[2024-11-09] MEDS: OLANZapine 5 mg TABLET 10 MG PO (09:01)
--- NOTE | 2024-11-09 09:46 | PM.DCS ---
Discharge Providers Date of Admission: 11/03/24 10:15 Date of Discharge: November 09, 2024 Attending Provider at Admission: Luis Arce MD Attending Provider at Discharge: Frank Cuevas MD Primary Care Provider: Alejandro Green MD Diagnoses at Discharge Discharge Diagnosis (1) Sepsis: Status: Acute (2) E coli bacteremia: Status: Acute (3) Infection due to ESBL-producing Escherichia coli: Status: Acute (4) Pyelonephritis: Status: Acute (5) Brain TIA: Status: Acute (6) Anemia: Status: Acute (7) Thrombocytopenia: Status: Acute (8) CT (acute kidney injury): Status: Acute (9) Septic shock: Status: Acute Reason for Visit Reason for Visit: high hr, confusion, shakes Brief History: History as per HPI: Kavitha Kraus is a 79 year old female with a past medical history of hypertension, hyperlipidemia, fast heart rate, who presents [facility] due to confusion, word finding difficulty, according to patient, at about 2 PM, she developed according to daughter episodes of confusion, word finding difficulty, all she notices that she suddenly felt very cold, had significant chills. Denies any chest pain, no palpitations, no lightheadedness, dizziness, no nausea, no vomiting, slurring of words, no focal weakness, no paresthesias, no history of stroke, she denies any recent illness, she was diagnosed with a UTI back in August but does report intermittent dysuria, no abdominal pain, no diarrhea, she does require frequent interaction with my questioning, we can get mostly questions appropriately, cannot discern a facial droop, slurring her words, her NIH stroke scale on admission was 0, currently NIH stroke scale is 0, she reports a history of fast heart rate but denies a history of atrial fibrillation, is not on any blood thinners, denies a cardiovascular history, Hospital Course Hospital Course Patient was admitted to the hospital further evaluation and management of possible TIA. During hospitalization patient developed septic shock which was thought to be in setting of pyelonephritis. She was started on broad-spectrum antibiotics, IV fluids and vasopressor. Blood cultures came back positive for ESBL E. coli. Subsequent blood cultures from 11/07 are so far negative. She was also found to have acute kidney injury on admission which is most likely in setting of severe sepsis. For TIA. Patient did not have any further episode of strokelike symptoms during hospitalization. Worked well with physical therapy. Echocardiogram was done which showed a normal EF with grade 2 diastolic dysfunction. For septic shock. Patient responded well to the treatment. Repeat blood cultures have been negative. She is back to her baseline mentation. She has not required vasopressors for over 48 to 72 hours. PICC line was placed. She is to continue taking IV or ertapenem for 2 more weeks with last dose of antibiotics on 11/20. She has been discharged in hemodynamically stable condition to [facility] for further rehabitation and completion of IV antibiotic course. She is to have weekly labs and weekly PICC line dressings. Labs will be followed up by the physician at [facility]. PICC line should be removed after completion of IV antibiotic course. She is to check her blood pressure daily at home with goal blood pressure of between 100-140 systolic mmHg. Physical Exam Const: COMMON NORMALS: no acute distress and patient oriented x3 ORIENTATION/CONSCIOUSNESS: Yes awake, Yes oriented to person and Yes oriented to place HENMT: COMMON NORMALS: normocephalic HEAD & SCALP: normocephalic Eye: COMMON NORMALS: Equal, round and reactive pupils present PUPIL: Yes Equal, round and reactive pupils present Neck/C-Spine: COMMON NORMALS: no JVD Lymph: LYMPHATIC: no lymphadenopathy noted Resp: COMMON NORMALS: normal respiratory effort, No retractions, No use of accessory muscles and clear to auscultation bilaterally AUSCULTATION: clear to auscultation bilaterally, crackles and wheezes Cardio: COMMON NORMALS: no JVD, regular rate, regular rhythm, S1 normal heart sound present and S2 normal heart sound present RATE: regular rate and tachycardic RHYTHM: regular rhythm HEART SOUNDS: S1 normal heart sound present and S2 normal heart sound present GI: COMMON NORMALS: Normal to inspection, nondistended, normoactive bowel sounds present, Soft to palpation and non-tender PALPATION: Yes Soft to palpation Extremity: COMMON NORMALS: no pedal edema NARRATIVE EXTREMITY EXAM: 1+ edema, anasarca Neuro: COMMON NORMALS: patient oriented x3, CN's II-XII intact bilaterally, moves all extremities and no focal motor deficits SENSORIUM/ORIENTATION: Yes oriented to person and Yes oriented to place Psych: COMMON NORMALS: mental status grossly normal Skin: COMMON NORMALS: no rashes or lesions noted GENERAL SKIN EXAM: no rashes or lesions noted Urinary Catheter Management: Schmitz: Cath Placed During This Visit: yes, but has since been removed by the nurse Reason for Continuing Indwelling Catheter: Decision to DC Catheter Urinary Catheter Date of Insertion: 11/03/24 Urinary Catheter Time of Insertion: 15:00 Date Urinary Catheter Removed: 11/07/24 Time Urinary Catheter Discontinued: 14:40 Discharge Data Studies Completed and Pending Completed Studies During Hospitalization Category Date Time Status CT angio head neck [CT angio headneck* [id number]/[id number]] Cat Scan 11/02/24 17:[address] chest abdomen pelvis [[place] [id number] Cat Scan 11/03/24 09:09 Completed ] Stat CT head thrombolytic [id number] Stat Cat Scan 11/02/24 15:29 Completed CXRP [XR chest 1V portable [id number]] Routine Exams 11/03/24 13:09 Completed XR chest 1V portable [id number] Stat Exams 11/02/24 15:29 Completed CV. echo complete* [id number] Stat Ultrasound 11/03/24 17:46 Completed US renal BI* [id number] Stat Ultrasound 11/03/24 13:14 Completed US renal BI* [id number] Stat Ultrasound 11/07/24 08:45 Completed Pending at discharge Category Date Time Status Blood Culture Stat Lab 11/05/24 03:37 Results SARS Covid-2 Antigen Routine Lab 11/09/24 09:18 Uncollected Sputum Culture and Gram Stain Stat Lab 11/03/24 15:22 Uncollected Radiology Impressions Head CT 11/02/24 15:29 IMPRESSION: 1. No evidence of intracranial hemorrhage or mass effect. 2. No acute intracranial findings. Notified Jeniffer Riley MD at 11/02/2024 3:46 PM. Head/Neck CTA 11/02/24 17:46 IMPRESSION: No large vessel stenosis or occlusion. IMPRESSION: No severe stenosis or occlusion. Mild stenosis at the origin of the left internal carotid artery. REFERENCES: NASCET CRITERIA. The degree of stenosis in the cervical segment of the internal carotid artery is based on NASCET criteria. Normal is no stenosis. Mild is less than 50% stenosis. Moderate is 50-69% stenosis. Severe is 70% to 99% stenosis. Total occlusion is no detectable patent lumen. Chest/Abdomen/Pelvis CT 11/03/24 09:09 IMPRESSION: 1. Suspected pyelonephritis LEFT kidney with delayed emptying described above. 2. Prior cholecystectomy. 3. Large esophageal hernia with partial intrathoracic stomach. 4. Patchy mild perihilar infiltrates. Recommend correlation for pneumonitis. Chest X-Ray 11/03/24 13:09 IMPRESSION: 1. Right-sided PICC line ending in the lower one third of the SVC. 2. There appears to be mild pulmonary vascular congestion which has developed since the last exam. Appearance suspicious for low-grade CHF. Renal Ultrasound 11/07/24 08:45 IMPRESSION: Mild pelviectasis versus extrarenal pelvis in the left kidney with suggestion of proximal ureterectasis. No sonographic evidence for gas in the kidneys. Microbiology 11/07/24 16:03 Stool Routine Collection Occult Blood (FIT) - Final 11/03/24 08:52 Blood Blood Culture - Final Escherichia coli esbl 11/03/24 08:58 Blood Blood Culture - Final Escherichia coli esbl 11/02/24 16:23 Urine,Clean Catch Urine Culture - Final Escherichia coli esbl Escherichia coli esbl#2 11/05/24 03:37 Blood Blood Culture - Preliminary NEGATIVE TO DATE 11/05/24 03:30 Blood Blood Culture - Preliminary NEGATIVE TO DATE 11/03/24 15:40 Urine Catheterized Urine Culture - Final Echocardiogram: CONCLUSIONS Normal left ventricular size, systolic function and wall thickness, with no regional wall motion abnormalities. Left ventricular ejection fraction is estimated at 60 %. Grade II/IV diastolic dysfunction, moderately elevated filling pressures. Moderately increased left atrial size. Moderately thickened mitral valve. Moderate mitral annular calcification. No mitral valve stenosis. Mild mitral valve regurgitation. Moderate aortic valve calcification. No aortic valve stenosis. Trace to mild aortic valve regurgitation. Mild tricuspid valve regurgitation. There is no pericardial effusion. Right atrial pressure is around 5 mm of mercury. Laboratory Results WBC 4.83 10^3/uL (3.29-11.43) 11/09/24 04:47 RBC 3.04 10^6/uL (3.85-5.65) L 11/09/24 04:47 Hgb 7.80 g/dL (11.27-16.99) L 11/09/24 04:47 Hct 25.7 % (36-47) L 11/09/24 04:47 MCV 84.5 fl (85-98) L 11/09/24 04:47 MCH 25.7 pg (27-33) L 11/09/24 04:47 MCHC 30.4 g/dL (30-55) 11/09/24 04:47 RDW 15.8 % (12.1-15.1) H 11/09/24 04:47 Plt Count 158 10^3/cmm (157-399) 11/09/24 04:47 MPV 10.8 fL (7.4-10.4) H 11/09/24 04:47 Neut % (Auto) 62.8 % 11/09/24 04:47 Lymph % (Auto) 21.5 % 11/09/24 04:47 [place] % (Auto) 11.6 % 11/09/24 04:47 Eos % (Auto) 0.0 % 11/09/24 04:47 Baso % (Auto) 0.4 % 11/09/24 04:47 Neut # (Auto) 3.03 10^3/uL (1.8-7.7) 11/09/24 04:47 Lymph # (Auto) 1.0 10^3/uL (0.8-4.8) 11/09/24 04:47 [place] # (Auto) 0.6 10^3/uL (0.2-0.9) 11/09/24 04:47 Eos # (Auto) 0.0 10^3/uL (0.0-0.8) 11/09/24 04:47 Baso # (Auto) 0.0 10^3/uL (0.0-0.1) 11/09/24 04:47 Nucleated RBC % (auto) 0 % 11/09/24 04:47 Total Counted 100 (0-100) 11/03/24 04:30 Atypical Lymphs % Not Reportable 11/03/24 04:30 Absolute Neutrophils 12.4 10^3/cmm (1.4-6.5) H 11/03/24 04:30 Segmented Neutrophils 65 % 11/03/24 04:30 Band Neutrophils 21.0 % 11/03/24 04:30 Lymphocytes (Manual) 5 % 11/03/24 04:30 Monocytes (Manual) 6.0 % 11/03/24 04:30 Absolute Monocytes 0.9 10^3/cmm (0.1-0.6) H 11/03/24 04:30 Eosinophils (Manual) 0 % 11/03/24 04:30 Absolute Eosinophils 0.0 10^3/cmm (0.0-0.7) 11/03/24 04:30 Basophils (Manual) 0.0 % 11/03/24 04:30 Absolute Basophils 0.0 10^3/cmm (0.0-0.2) 11/03/24 04:30 Metamyelocytes 2.0 % 11/03/24 04:30 Myelocytes 1.0 % 11/03/24 04:30 Nucleated RBCs # 0.0 /100WBC 11/09/24 04:47 Platelet Estimate Decreased (Normal) L 11/03/24 04:30 Peripher Smr Path Cons Sent for review 11/03/24 08:58 ESR 21 mm/hr (0-15) H 11/03/24 08:58 Haptoglobin 218.0 mg/L (30-200) H 11/05/24 03:37 PT 14.00 SECONDS (12.1-14.9) 11/02/24 15:55 INR 1.01 (0.8-1.2) 11/02/24 15:55 APTT 28.5 SECONDS (23.9-36.7) 11/02/24 15:55 Sodium 140 mmol/L (136-145) 11/09/24 04:47 Potassium 3.9 mmol/L (3.5-5.1) 11/09/24 04:47 Chloride 107 mmol/L (98-107) 11/09/24 04:47 Carbon Dioxide 22 mmol/L (22-29) 11/09/24 04:47 Anion Gap 14.9 (5-19) 11/09/24 04:47 BUN 16 mg/dL (8-23) 11/09/24 04:47 Creatinine 1.2 mg/dL (0.5-0.9) H 11/09/24 04:47 GFR Calculation Not Reportable 11/09/24 04:47 Glucose 122 mg/dL (65-115) H 11/09/24 04:47 POC Glucose 147 mg/dL (70-110) H 11/02/24 16:02 Estimat Average Glucose 103 11/03/24 04:30 Hemoglobin A1c 5.2 % (4.0-6.0) 11/03/24 04:30 Calculated Osmolality 292 mOsm/kg (285-295) 11/09/24 04:47 Lactic Acid 2.2 mmol/L (0.5-2.2) 11/03/24 08:58 Lactic Acid (Sepsis) 3.5 mmol/L (0.5-2.2) H 11/03/24 12:50 Calcium 8.6 mg/dL (8.5-10.5) 11/09/24 04:47 Phosphorus 3.1 mg/dL (2.5-4.5) 11/08/24 03:52 Magnesium 2.0 mg/dL (1.7-2.3) 11/08/24 03:52 Iron 8 ug/dL (37-145) L 11/03/24 08:58 TIBC 355 mcg/dl 11/03/24 08:58 % Saturation 2.2 % (20-50) L 11/03/24 08:58 Unsat Iron Binding 347 ug/dL (112-347) 11/03/24 08:58 Ferritin 66 ng/mL (15-150) 11/03/24 08:58 Total Bilirubin 0.2 mg/dL (0.15-1.2) 11/09/24 04:47 AST 9 U/L (0-32) 11/09/24 04:47 ALT 6 U/L (0-33) 11/09/24 04:47 Alkaline Phosphatase 31 U/L (35-105) L 11/09/24 04:47 Lactate Dehydrogenase 136 U/L (135-214) 11/05/24 03:37 Creatine Kinase 215 U/L (26-192) H 11/05/24 03:37 C-Reactive Protein 64.6 mg/L (0.0-4.9) H 11/08/24 03:52 NT-Pro-B Natriuret Pep 794 pg/mL (0-450) H 11/08/24 03:52 Total Protein 5.5 g/dL (6.6-8.7) L 11/09/24 04:47 Albumin 3.0 g/dL (3.5-5.2) L 11/09/24 04:47 Globulin 2.5 g/dL (1.3-4.6) 11/09/24 04:47 Triglycerides 79 mg/dL (0-150) 11/03/24 04:30 Cholesterol 98 mg/dL (0-200) 11/03/24 04:30 LDL Cholesterol, Calc 44 mg/dL (50-129) L 11/03/24 04:30 HDL Cholesterol 38 mg/dL (60-100) L 11/03/24 04:30 LDL/HDL Ratio 1.16 RATIO (0.00-3.22) 11/03/24 04:30 Cholesterol/HDL Ratio 2.58 mg/dL (0.0-4.40) 11/03/24 04:30 Vitamin B12 736 pg/mL (232-1245) 11/08/24 03:52 Procalcitonin 1.94 ng/mL (0-0.5) H 11/08/24 03:52 TSH 0.45 uIU/mL (0.27-4.20) 11/03/24 04:30 Urine Color Yellow (Yellow) 11/03/24 15:40 Urine Appearance Clear (CLEAR) 11/03/24 15:40 Urine pH 5 (5-7) 11/03/24 15:40 Ur Specific [place] 1.015 (1.005-1.030) 11/03/24 15:40 Urine Protein Trace (Negative) 11/03/24 15:40 Urine Glucose (UA) Norm (Normal) 11/03/24 15:40 Urine Ketones Negative (Negative) 11/03/24 15:40 Urine Blood 2+ (Negative) H 11/03/24 15:40 Urine Nitrate Negative (Negative) 11/03/24 15:40 Urine Bilirubin Neg (Negative) 11/03/24 15:40 Urine Urobilinogen Norm mg/dL (Negative) 11/03/24 15:40 Ur Leukocyte Esterase 2+ (Negative) H 11/03/24 15:40 Urine RBC 0-2 /hpf (0-2) 11/03/24 15:40 Urine WBC 6-10 /hpf (0-5) 11/03/24 15:40 Ur Squamous Epith Cells 0-5 /hpf (0-5) 11/03/24 15:40 Amorphous Sediment Not Reportable 11/03/24 15:40 Urine Bacteria None seen /hpf (NONE) 11/03/24 15:40 Hyaline Casts 2.05 /lpf 11/03/24 15:40 Vancomycin Trough 6.4 ug/mL (10-15) L 11/04/24 07:43 Urine Opiates Screen Negative ng/mL (Negative) 11/02/24 16:23 Ur Barbiturates Screen Negative ng/mL (Negative) 11/02/24 16:23 Ur Phencyclidine Scrn Negative ng/mL (Negative) 11/02/24 16:23 Ur Amphetamines Screen Negative ng/mL (Negative) 11/02/24 16:23 U Benzodiazepines Scrn Negative ng/mL (Negative) 11/02/24 16:23 Urine Cocaine Screen Negative ng/mL (Negative) 11/02/24 16:23 U Marijuana (THC) Screen Negative ng/mL (Negative) 11/02/24 16:23 Influenza A (PCR) Negative (Negative) 11/04/24 00:50 Influenza Type B (PCR) Negative (Negative) 11/04/24 00:50 RSV (PCR) Negative (Negative) 11/04/24 00:50 SARS-CoV-2 (PCR) Negative (Negative) 11/04/24 00:50 Vitals Last Vital Signs Temp 98.0 F 11/09/24 08:00 Pulse 90 11/09/24 09:40 Resp 15 11/09/24 09:40 BP 123/75 11/09/24 08:00 Pulse Ox 92 11/09/24 09:40 O2 Del Method Room Air 11/09/24 09:40 O2 Flow Rate 2 11/06/24 03:19 FiO2 3 11/04/24 22:00 Discharge Plan Discharge Patient Disposition: Xfer SNF Condition: Stable Prescriptions: New aspirin 81 mg Tablet,Delayed Release (Dr/Ec) 81 mg PO DAILY Qty: 30 3RF Continued tramadol 50 mg Tablet 50 mg PO Q6H PRN (Reason: unknown) metoprolol tartrate 25 mg Tablet 25 mg PO BID gemfibrozil 600 mg Tablet 600 mg PO BID ferrous sulfate 325 mg (65 mg iron) Tablet 325 mg PO QID paroxetine HCl 40 mg Tablet 40 mg PO DAILY pantoprazole 40 mg Tablet,Delayed Release (Dr/Ec) 40 mg PO DAILY montelukast 10 mg Tablet 10 mg PO DAILY Asmanex HFA 200 mcg/actuation Hfa Aerosol Inhaler 2 puff INHALATION DAILY olanzapine 10 mg tablet 10 mg PO DAILY famotidine 40 mg tablet 40 mg PO DAILY Ozempic 0.25 mg or 0.5 mg (2 mg/3 mL) pen injector 0.25 mg SUBCUT Q7D trazodone 150 mg Tablet 150 mg PO BEDTIME Rx Instructions: daily at bedtime Changed furosemide 40 mg tablet 40 mg PO DAILY PRN (Reason: Lower limb swelling, weight gain of 3 pounds) Qty: 10 0RF Held losartan 50 mg tablet 50 mg PO DAILY Hold Instructions: Resume on 11/23/24. Discontinued meloxicam 15 mg Tablet 15 mg PO DAILY clonidine HCl 0.2 mg tablet 0.2 mg PO BID Discharge Orders: Discharge Order (Routine); Ordered 11/09/24 Ordered By: Frank Cuevas Referrals: [facility] [Outside] Alejandro Green MD [Primary Care Provider] - 7-10 days Discharge Diet: Cardiac Discharge Activity: Resume usual activity and Increase activity as tolerated Patient Instructions: Urinary Tract Infection in Women (GEN), Altered Mental Status (ED), PICC (Peripherally Inserted Central Catheter) (GEN), Opioid Safety Activity Restrictions/Additional Instructions: Check your blood pressure daily. Goal blood pressure is between 100?140 systolic. Hold off on taking clonidine, losartan and meloxicam for now. Continue taking metoprolol as before. Do not take meloxicam going forward. Continue ertapenem 1 g IV daily due 11/20. Weekly PICC line dressing. Weekly labs to be followed by SNF provider. PICC line should be removed after completion of IV antibiotic course. Discharge Attestations Time Spent in Discharge Care*: greater than 30 min Specific Discharge Activities: educating patient, discussing with pcp/other providers, discussing with case finisher/social workers/dc planners, documenting/other paperwork and evaluating patient/reviewing data Status at Discharge: Cognitive status at discharge: cognitively intact, Behavioral status at discharge: cooperative, Functional status at discharge: uses cane/walker, Overall status at discharge: patient is progressing back to baseline Quality Metrics Clinical Quality Measures [ Cerebrovascular Accident { Contraindication to Antithrombotic: None; antithrombotic prescribed; Contraindication to Anticoagulation: Overlap treatment not indicated; Contraindication to Statin: Drug interaction; Contraindication to tPA: Treatment not indicated;}] Coding Level of Care Code 53632 Total time (in minutes) for Discharge: 65 Diagnoses Sepsis A41.9 E coli bacteremia R78.81; B96.20 Infection due to ESBL-producing Escherichia coli A49.8; Z16.12 Pyelonephritis N12 Brain TIA G45.9 Anemia D64[address] (acute kidney injury) N17.9 Septic shock A41.9; R65.21
[2024-11-09] MEDS: ertapenem 1,000 mg SDV 1000 MG IVP (10:55)
--- NOTE | 2024-11-09 11:06 | PC.OT ---
OT TREATMENT HELD DUE TO SCHEDULED PATIENT D/C TODAY
[2024-11-09 11:59] LABS: SARS Covid-2 Antigen Negative (Negative)
--- NOTE | 2024-11-09 12:59 | PC.NURSE ---
Called report to Windy Ghosh RN at [facility] PICC dressing changed before patient left.
== END 2024-11-09 15:15 | disposition skilled nursing facility (03) | DRG 871 ==
LOC: ER 17:45 → ER IP 17:50 → MEDSURG 18:39 → ICU 11-03 14:25 → MEDSURG 11-06 14:32
PROVIDERS: Internal Medicine; Admitting Provider Family Medicine; Emergency Provider Emergency Medicine; PCP Family Medicine; Visit Provider Student in an Organized Health Care Education/Training Program
DX: A41.51 Sepsis due to Escherichia coli [E. coli] (principal); R65.21 Severe sepsis with septic shock; Z16.12 Extended spectrum beta lactamase (ESBL) resistance; N10 Acute pyelonephritis; G45.9 Transient cerebral ischemic attack, unspecified; N17.9 Acute kidney failure, unspecified; D64.9 Anemia, unspecified; D69.6 Thrombocytopenia, unspecified; I10 Essential (primary) hypertension; E78.5 Hyperlipidemia, unspecified
CPT/HCPCS: 36415; 36416; 36573; 36592; 51702; 70450; 70496; 70498; 71045; 71250; 74176; 76770; 80048; 80053; 80061; 80202; 80306; 80503; 81001; 82274; 82550; 82607; 82728; 82962; 83010; 83036; 83540; 83550; 83605; 83615; 83735; 83880; 84100; 84145; 84443; 85007; 85025; 85610; 85651; 85730; 86140; 87040; 87077; 87086; 87150; 87186; 87205; 87426; 87637; 92507; 92523; 92610; 93005; 93306; 94640; 94664; 96361; 96372; 96374; 96376; 97110; 97116; 97161; 97167; 97535; 99285; G0378; J1335; J1650; J1940; J2185; J2470; J3370; J3475; J7030; J7120; J9999; P9046

== ENCOUNTER → 2025-03-03 13:27 | Outpatient (BNVA) | payer MEDICARE, OTHER, SELFPAY | PROVIDERS: PCP Family Medicine; Visit Provider Internal Medicine Cardiovascular Disease | DX: R00.0 Tachycardia, unspecified (principal); I08.1 Rheumatic disorders of both mitral and tricuspid valves | CPT/HCPCS: 99204 ==

== ENCOUNTER → 2025-05-11 12:51 | Outpatient (BNVA) | payer MEDICARE, OTHER, SELFPAY | PROVIDERS: PCP Family Medicine; Visit Provider Nurse Practitioner Family | DX: L40.0 Psoriasis vulgaris (principal); D23.72 Other benign neoplasm of skin of left lower limb, including hip; D23.71 Other benign neoplasm of skin of right lower limb, including hip; L40.59 Other psoriatic arthropathy; D18.01 Hemangioma of skin and subcutaneous tissue; L60.1 Onycholysis; L72.0 Epidermal cyst | CPT/HCPCS: 99204 ==